=== PATIENT | female | born 1930 | race Caucasian/White ===

== ENCOUNTER 2018-01-19 13:19 | Observation (INO) | payer OTHER ==
[2018-01-19 14:16] LABS: Absolute Lymphocytes (CBC) 1.4 K/uL (0.7-4.9); Absolute Monocytes 0.6 K/uL (0.1-1.3); Absolute Neutrophil 4.2 K/uL (1.8-8.0); Basophils % 0.9 % (0-1.3); Hematocrit 33.5 % (36.0-45.0); Lymphocytes % 22.4 % (15.3-44.8); MCH 32.2 pg (27.0-35.0); MCV 100.2 fL (80-100); Monocytes % 9.5 % (3.3-12.3); RBC Red Blood Cell Count 3.34 M/uL (3.86-4.86)
--- NOTE | 2018-01-19 14:20 | RAD REPORT ---
EXAM DESCRIPTION: CARLOSExtrememe Venous Uni Ltd01/19/2018 2:10 pm CLINICAL HISTORY: Right leg pain and swelling. COMPARISON: None. FINDINGS: Right common femoral, superficial femoral, popliteal and right posterior tibial veins are compressible and demonstrate augmentation. Doppler demonstrates good flow. IMPRESSION: No evidence of deep venous thrombosis involving the right lower extremity.
[2018-01-19 14:38] LABS: Potassium 4.3 mmol/L (3.5-5.1)
--- NOTE | 2018-01-19 14:40 | RAD REPORT ---
EXAM DESCRIPTION: Jerry Single View01/19/2018 2:28 pm CLINICAL HISTORY: Shortness of breath COMPARISON: 2016 FINDINGS: Mild to moderate bilateral pulmonary opacities are present. The heart is mildly enlarged. The right hilum is mildly prominent. Postsurgical changes involve the chest A small left pleural effusion is suspected IMPRESSION: Bilateral pulmonary opacities with cardiomegaly likely indicate CHF Prominence of the right hilum may represent a combination of pulmonary vessels and adjacent interstit ial pulmonary edema. Lymphadenopathy can also have a similar appearance. Followup is recommended
[2018-01-19] MEDS ORDERED: ONDANSETRON 4 MG/2 ML VIAL IV PRN (14:58)
[2018-01-19] MEDS ORDERED: ACETAMINOPHEN 500 MG TAB PO PRN (14:58)
[2018-01-19] MEDS ORDERED: FUROSEMIDE 20 MG/ 2ML VIAL ONE (15:00)
--- NOTE | 2018-01-19 15:01 | ER ---
Nurse's Notes [facility] Name: Emilie Guerrero Age: 87 yrs Sex: Female : 1930 Arrival Date: 01/19/2018 Time: 13: Bed 6 Private MD: Srikanth Mackenzie B Diagnosis: Dyspnea, unspecified;Edema, unspecified Presentation: 01/19 13:24 Presenting complaint: Patient states: sent by Dr Mackenzie to r/o DVT to right leg. Pt sv reports RLE swelling and numbness. Transition of care: patient was not received from another setting of care. Onset of symptoms was November 2017. Risk Assessment: Do you want to hurt yourself or someone else? Patient reports no desire to harm self or others. Care prior to arrival: None. 13:24 Method Of Arrival: Wheelchair sv 13:24 Acuity: SHAILESH 3 sv 13:40 Initial Sepsis Screen: Does the patient meet any 2 criteria? No. Patient's initial hj sepsis screen is negative. Does the patient have a suspected source of infection? No. Patient's initial sepsis screen is negative. Triage Assessment: 13:38 General: Appears in no apparent distress. uncomfortable, Behavior is calm, cooperative, hj appropriate for age. Pain: Complains of pain in right leg. EENT: No signs and/or symptoms were reported regarding the EENT system. Neuro: Level of Consciousness is awake, alert, obeys commands, Oriented to person, place, time, situation, Appropriate for age. Cardiovascular: Denies chest pain, Heart tones S1 S2 present Capillary refill < 3 seconds Patient's skin is warm and dry. Respiratory: Airway is patent Respiratory effort is even, unlabored, Respiratory pattern is regular, symmetrical, Breath sounds are clear. Respiratory: Reports shortness of breath on exertion. GI: No signs and/or symptoms were reported involving the gastrointestinal system. : No signs and/or symptoms were reported regarding the genitourinary system. Derm: No signs and/or symptoms reported regarding the dermatologic system. Musculoskeletal: No signs and/or symptoms reported regarding the musculoskeletal system. Historical: - Allergies: 13:26 No Known Allergies; sv - Home Meds: 13:26 Lipitor 10 mg Oral Tb24 1 tab nightly for Hypercholesterolemia [Active]; Coreg 3.125 mg sv Oral Tb24 0.5 tab daily for Chronic Heart Failure [Active]; magnesium oxide 400 mg Oral Tb24 nightly for Hypomagnesemia [Active]; Klor-Con 10 meq daily [Active]; Lasix Oral 1 tab once daily for Peripheral Edema due to Chronic Heart Failure [Active]; aspirin 81 mg Oral TbEC 2 tabs once daily for Acute Coronary Syndrome [Active]; Vitamin D Oral [Active]; - PMHx: 13:26 CHF; Hyperlipidemia; Hypertension; sv - PSHx: 13:26 BACK-2016; CABG; Aortic Valve-2016; sv - Immunization history:: Adult Immunizations up to date. - Social history:: Smoking status: Patient/guardian denies using tobacco. - Ebola Screening: : No symptoms or risks identified at this time. - Family history:: not pertinent. - Hospitalizations: : No recent hospitalization is reported. Screenin:38 Abuse screen: Denies threats or abuse. Denies injuries from another. Nutritional hj screening: No deficits noted. Tuberculosis screening: No symptoms or risk factors identified. Fall Risk None identified. Assessment: 13:16 Reassessment: see triage for assessment;. hj 14:30 Reassessment: Patient and/or family updated on plan of care and expected duration. Pain hj level reassessed. Patient is alert, oriented x 3, equal unlabored respirations, skin warm/dry/pink. awaiting results and POC;. 15:15 Reassessment: Patient and/or family updated on plan of care and expected duration. Pain hj level reassessed. Patient is alert, oriented x 3, equal unlabored respirations, skin warm/dry/pink. for admit;. 15:44 Reassessment: Patient and/or family updated on plan of care and expected duration. Pain hj level reassessed. Patient is alert, oriented x 3, equal unlabored respirations, skin warm/dry/pink. awaiting room placement;. 16:21 Reassessment: Patient and/or family updated on plan of care and expected duration. Pain hj level reassessed. Patient is alert, oriented x 3, equal unlabored respirations, skin warm/dry/pink. to room 414; awaiting for floor nurse to call back to receive report;. Vital Signs: 13:26 BP 128 / 46; Pulse 69; Resp 18; Pulse Ox 93% on R/A; Weight 79.38 kg; Height 5 ft. 5 sv in. (165.10 cm); 13:31 Temp 98.3; sv 14:30 BP 129 / 58; Pulse 68; Resp 18; Pulse Ox 100% on R/A; hj 15:46 BP 142 / 61; Pulse 58; Resp 18; Pulse Ox 100% on R/A; hj 16:22 BP 141 / 66; Pulse 60; Resp 18; Pulse Ox 99% on R/A; hj 13:26 Body Mass Index 29.12 (79.38 kg, 165.10 cm) sv ED Course: 13:22 Patient arrived in ED. mr 13:22 Srikanth Mackenzie MD is Private Physician. mr 13:25 Triage completed. sv 13:26 Arm band placed on right wrist. sv 13:28 Jay Tomlin, NIECY is Primary Nurse. hj 13:32 Houston Berumen MD is Attending Physician. rn 13:40 Patient has correct armband on for positive identification. Placed in gown. Bed in low hj position. Call light in reach. Side rails up X 1. 13:46 Note: us done bedside/portable. lc3 13:51 Initial lab(s) drawn, by ny, sent to lab. Inserted saline lock: 22 gauge in right hj antecubital area, using aseptic technique. Blood collected. 13:52 Blood Culture Adult (2) Sent. hj 13:52 BMP Sent. hj 13:52 CBC with Diff Sent. hj 13:52 Troponin (emerg Dept Use Only) Sent. hj 13:52 NT PRO-BNP Sent. hj 13:52 CBC with Automated Diff Sent. hj 13:52 Basic Metabolic Panel Sent. hj 13:52 Blood Culture Sent. hj 13:55 EKG done, by director of instructional technology. reviewed by Houston Berumen MD. sm3 14:10 Extremity Venous Uni Ltd US In Process Unspecified. EDMS 14:11 Ultrasound completed. Patient tolerated well. lc3 14:23 X-ray completed. Portable x-ray completed in exam room. Patient tolerated procedure ml well. 14:28 XRAY CXR (1 view) In Process Unspecified. EDMS 15:00 Gerhard Nascimento DO is Hospitalizing Provider. rn 15:15 BNP Sent. hj Administered Medications: 14:49 Drug: Lasix 20 mg Route: IVP; Site: right antecubital; hj 15:15 Follow up: Response: No adverse reaction hj Outcome: 15:00 Decision to Hospitalize by Provider. rn 17:08 Patient left the ED. Signatures: Dispatcher [employer] EDKelly Orr, Harini Turner RN, Houston Emerson MD MD rn Joaquin, Henry, RN RN hj Cunningham, Sarah Mae 3
--- NOTE | 2018-01-19 15:01 | EDPHYS ---
Physician Documentation [facility] Name: Emilie Guerrero Age: 87 yrs Sex: Female : 1930 Arrival Date: 01/19/2018 Time: 13:22 Bed 6 Private MD: Srikanth Mackenzie B ED Physician Houston Berumen HPI: 01/19 14:51 This 87 yrs old Female presents to ER via Wheelchair with complaints of Leg rn Swelling. 14:51 Sent by pcp for elevated d-dimer, patient reports approx 1 month of leg swelling and rn achiness, + sob for 1 month, + dyspnea on exertion, no fever, + non-productive cough. . Onset: The symptoms/episode began/occurred 1 month(s) ago. Severity of symptoms: At their worst the symptoms were mild in the emergency department the symptoms are unchanged. The patient has experienced similar episodes in the past. The patient has been recently seen by a physician:. Historical: - Allergies: 13:26 No Known Allergies; sv - Home Meds: 13:26 Lipitor 10 mg Oral Tb24 1 tab nightly for Hypercholesterolemia [Active]; Coreg 3.125 mg sv Oral Tb24 0.5 tab daily for Chronic Heart Failure [Active]; magnesium oxide 400 mg Oral Tb24 nightly for Hypomagnesemia [Active]; Klor-Con 10 meq daily [Active]; Lasix Oral 1 tab once daily for Peripheral Edema due to Chronic Heart Failure [Active]; aspirin 81 mg Oral TbEC 2 tabs once daily for Acute Coronary Syndrome [Active]; Vitamin D Oral [Active]; - PMHx: 13:26 CHF; Hyperlipidemia; Hypertension; sv - PSHx: 13:26 BACK-2016; CABG; Aortic Valve-2016; sv - Immunization history:: Adult Immunizations up to date. - Social history:: Smoking status: Patient/guardian denies using tobacco. - Ebola Screening: : No symptoms or risks identified at this time. - Family history:: not pertinent. - Hospitalizations: : No recent hospitalization is reported. ROS: 14:55 Constitutional: Negative for fever, chills, and weight loss, Eyes: Negative for injury, rn pain, redness, and discharge, Cardiovascular: + leg swelling Respiratory: + sob, + cough Abdomen/GI: Negative for abdominal pain, nausea, vomiting, diarrhea, and constipation, MS/Extremity: Negative for injury and deformity, Skin: Negative for injury, rash, and discoloration, Neuro: Negative for headache, weakness, numbness, tingling, and seizure. Exam: 14:55 Constitutional: This is a well developed, well nourished patient who is awake, alert, rn and in no acute distress. Head/Face: Normocephalic, atraumatic. Eyes: Pupils equal round and reactive to light, extra-ocular motions intact. Lids and lashes normal. Conjunctiva and sclera are non-icteric and not injected. Cornea within normal limits. Periorbital areas with no swelling, redness, or edema. Neck: Trachea midline, no thyromegaly or masses palpated, and no cervical lymphadenopathy. Supple, full range of motion without nuchal rigidity, or vertebral point tenderness. No Meningismus. Chest/axilla: Normal chest wall appearance and motion. Nontender with no deformity. No lesions are appreciated. Cardiovascular: Regular rate and rhythm with a normal S1 and S2. No gallops, murmurs, or rubs. Normal PMI, no JVD. No pulse deficits. Respiratory: + mild tachypnea, clear bilaterally Abdomen/GI: Soft, non-tender, with normal bowel sounds. No distension or tympany. No guarding or rebound. No evidence of tenderness throughout. MS/ Extremity: Pulses equal, no cyanosis. Neurovascular intact. Full, normal range of motion. 1+ non-pitting edema RLE with 1cm greater circumference Neuro: Awake and alert, GCS 15, oriented to person, place, time, and situation. Cranial nerves II-XII grossly intact. Motor strength 5/5 in all extremities. Sensory grossly intact. Cerebellar exam normal. Normal gait. Vital Signs: 13:26 BP 128 / 46; Pulse 69; Resp 18; Pulse Ox 93% on R/A; Weight 79.38 kg; Height 5 ft. 5 sv in. (165.10 cm); 13:31 Temp 98.3; sv 14:30 BP 129 / 58; Pulse 68; Resp 18; Pulse Ox 100% on R/A; hj 15:46 BP 142 / 61; Pulse 58; Resp 18; Pulse Ox 100% on R/A; hj 16:22 BP 141 / 66; Pulse 60; Resp 18; Pulse Ox 99% on R/A; hj 13:26 Body Mass Index 29.12 (79.38 kg, 165.10 cm) sv MDM: 13:32 Patient medically screened. rn 14:59 Differential Diagnosis CHF, PE, anemia. Data reviewed: vital signs, nurses notes, laboratory specialist test result(s), EKG, radiologic studies, plain films, and as a result, I will admit patient. Counseling: I had a detailed discussion with the patient and/or guardian regarding: the historical points, exam findings, and any diagnostic results supporting the discharge/admit diagnosis, lab results, radiology results, the need for further work-up and treatment in the hospital. Admission orders: after a detailed discussion of the patient's condition and case, the admit orders are written by me. ED course: Pt with renal insufficiency, unable to get CT PE, will get VQ scan in AM, admitted to dr siddiqi, lasix 20mg ordered, symptoms more consistent with CHF/pulmonary edema given length of symptoms. . 01/19 13:39 Order name: Blood Culture Adult (2) rn 01/19 13:39 Order name: BMP rn 01/19 13:39 Order name: CBC with Diff rn 01/19 13:39 Order name: Troponin (emerg Dept Use Only); Complete Time: 14:40 rn 01/19 13:39 Order name: BNP rn 01/19 13:39 Order name: Blood Culture EDNY 01/19 13:39 Order name: XRAY CXR (1 view); Complete Time: 14:42 rn 01/19 13:39 Order name: Extremity Venous Uni Ltd US; Complete Time: 14:30 rn 01/19 13:39 Order name: Basic Metabolic Panel; Complete Time: 14:40 EDNY 01/19 13:39 Order name: CBC with Automated Diff; Complete Time: 14:18 EDNY 01/19 13:39 Order name: NT PRO-BNP; Complete Time: 14:40 EDNY 01/19 14:48 Order name: VQ scan (Nuclear Medicine) rn 01/19 16:46 Order name: Urine Dipstick--Ancillary (enter results) 01/19 16:54 Order name: Urine Dipstick-Ancillary; Complete Time: 17:01 EDNY 01/19 13:39 Order name: EKG; Complete Time: 13:39 rn 01/19 13:39 Order name: Cardiac monitoring; Complete Time: 13:41 rn 01/19 13:39 Order name: EKG - Nurse/Tech; Complete Time: 13:52 rn 01/19 13:39 Order name: IV Saline Lock; Complete Time: 13:51 rn 01/19 13:39 Order name: Labs collected and sent; Complete Time: 13:52 rn 01/19 13:39 Order name: O2 Per Protocol; Complete Time: 13:40 rn 01/19 13:39 Order name: O2 Sat Monitoring; Complete Time: 13:40 rn 01/19 16:32 Order name: US; Complete Time: 17:01 EDMS Administered Medications: 14:49 Drug: Lasix 20 mg Route: IVP; Site: right antecubital; 15:15 Follow up: Response: No adverse reaction Disposition: 01/19/18 15:00 Hospitalization ordered by Gerhard Siddiqi for Observation. Preliminary diagnosis are Dyspnea, unspecified, Edema, unspecified. - Bed requested for Telemetry/MedSurg (observation). - Status is Observation. hj - Condition is Stable. - Problem is an ongoing problem. - Symptoms have improved. UTI on Admission? No Signatures: Dispatcher [employer] EDMS Kelly Montez RN Dia Garcia RN RN dw Nieto, Roman, MD MD rn Roszak, Josh, PA PA [facility] Jay Tomlin RN RN terra Corrections: (The following items were deleted from the chart) 16:09 15:00 Hospitalization Ordered by Gerhard Siddiqi DO for Observation. Preliminary dw diagnosis is Dyspnea, unspecified; Edema, unspecified. Bed requested for Telemetry/MedSurg (observation). Status is Observation. Condition is Stable. Problem is an ongoing problem. Symptoms have improved. UTI on Admission? No. rn 17:08 16:09 01/19/2018 15:00 Hospitalization Ordered by Gerhard Siddiqi DO for Observation. Preliminary diagnosis is Dyspnea, unspecified; Edema, unspecified. Bed requested for Telemetry/MedSurg (observation). Status is Observation. Condition is Stable. Problem is an ongoing problem. Symptoms have improved. UTI on Admission? No. dw
--- NOTE | 2018-01-19 15:38 | P.HP ---
Certification for Inpatient Patient admitted to: Observation With expected LOS: <2 Midnights Patient will require the following post-hospital care: None Practitioner: I am a practitioner with admitting privileges, knowledge of patient current condition, hospital course, and medical plan of care. Services: Services provided to patient in accordance with Admission requirements found in Title 42 Section 412.3 of the Code of Federal Regulations Patient History Date of Service: 01/19/18 Primary Care Provider: Dr. Mackenzie; Oncology-Dr. Montoya Reason for admission: Shortness of breath, right lower extremity edema History of Present Illness: 87-year-old female presented emergency room after she was sent by her PCP to evaluate for shortness of breath and right lower extremity edema. Patient reports that she has been having mild shortness of breath and edema to the lower extremities primarily to the right lower side over the past month. She denies any fever, chills, or cough. She has reported some congestion. She denies any chest pain, nausea, or vomiting. Occasional palpitations noted. The patient recently had lab. D-dimer was elevated as per PCP reported. In the ER patient was evaluated. Vital signs stable. Patient was slightly hypoxic. On lab white count 6.4, hemoglobin 10.8. Sodium 138, potassium 4.1, BUN of 34, creatinine 1.7 with a GFR of 28. Troponin unremarkable. BNP elevated at 726. Venous Doppler of the right lower extremity negative for DVT. Chest x-ray showed pulmonary edema suspicious for CHF. The patient was admitted for further evaluation. When I saw the patient ER, she appeared stable. She denied any appear in any acute respiratory distress. Patient with history of aortic valve replacement with Pig valve, hyperlipidemia, hypertension, CHF, multiple myeloma, chronic renal disease patient. She does not smoke or drink. Patient takes a small amount of Lasix. Allergies No Known Allergies Allergy (Verified 03/04/16 02:34) Home medications list reviewed: Yes Home Medications: Aspirin [Aspirin EC 81 MG] 2 tab PO DAILY 03/04/16 Atorvastatin Calcium [Lipitor*] 10 mg PO DAILY 03/04/16 Carvedilol 0.5 mg PO DAILY 03/04/16 Furosemide [Lasix*] 20 mg PO DAILY 03/04/16 Magnesium Oxide [Mag 0X*] 400 mg PO DAILY 03/04/16 Potassium Chloride [Klor-Con 10] 10 meq PO DAILY 03/04/16 Tramadol HCl 50 mg PO BID PRN 03/04/16 Azithromycin Tab [Zithromax*] 250 mg PO DAILY #5 tab 03/05/16 Cefdinir [Omnicef] 300 mg PO DAILY #5 capsule 03/05/16 - Past Medical/Surgical History Diabetic: No -: HTN -: CHF -: Coronary artery disease, CABG -: Aortic valve replacement, nonmechanical -: Chronic renal disease -: Hyperlipidemia -: Multiple myeloma -: Back surgery -: Non mechanical aortic valve replacement -: CABG x2 vessels -: Right knee replacement Psychosocial/ Personal History: The patient is a . She lives by herself. She is independent. She has children - Family History Family History: Reviewed- Non-Contributory - Social History Smoking Status: Never smoker Alcohol use: No CD- Drugs: No Caffeine use: Yes Place of Residence: Home Review of Systems General: As per HPI Eyes: Unremarkable ENT: Unremarkable Respiratory: Shortness of Breath, As per HPI Cardiovascular: Palpitations, Edema, As per HPI Gastrointestinal: Unremarkable Genitourinary: Unremarkable Musculoskeletal: Unremarkable Integumentary: As per HPI Neurological: Unremarkable Lymphatics: Unremarkable Physical Examination - Physical Exam General: Alert, In no apparent distress, Oriented x3, Cooperative HEENT: Atraumatic, Normocephalic, PERRLA, Mucous membr. moist/pink Neck: Supple, No Thyromegaly Respiratory: Crackles/rales (Mild bilateral) Cardiovascular: Regular rate/rhythm Gastrointestinal: Normal bowel sounds, Soft and benign, Non-distended, No ascites, No tenderness, No masses, No rebound, No guarding Musculoskeletal: No erythema, No tenderness, No warmth Integumentary: Other (History of right knee replacement. Mild edema to the right lower extremities bilateral right greater than left. Varicosities noted bilateral) Neurological: Normal speech, Normal strength at 5/5 x4 extr, Normal tone, Normal affect Lymphatics: No axilla or inguinal lymphadenopathy - Studies Laboratory Data (last 24 hrs) 01/19/18 13:50: WBC 6.4, Hgb 10.8 L, Hct 33.5 L, Plt Count 216 01/19/18 13:50: Sodium 139, Potassium 4.3, BUN 34 H, Creatinine 1.70 H, Glucose 117 H Assessment and Plan - Problems (Diagnosis) (1) Shortness of breath Current Visit: Yes Status: Acute Plan: Likely from underlying CHF suspect systolic dysfunction. Will increase Lasix to 20 mg IV twice daily. Patient normally takes Lasix 20 mg daily. Will teach on 1500 cc per day fluid restriction and low-salt diet. Since the patient had a recent elevated D-dimer scan for pulmonary embolism. Venous Doppler of the lower extremity is negative. Will console pulmonology to further evaluate and make recommendations. Patient seen by cardiology as an outpatient. Will order echocardiogram. (2) CHF (congestive heart failure) Current Visit: Yes Status: Acute Plan: Suspect systolic dysfunction. Continue with IV Lasix. Teach on fluid restriction. Echocardiogram pending. Qualifiers: Heart failure type: systolic Heart failure chronicity: acute on chronic Qualified Code(s): I50.23 - Acute on chronic systolic (congestive) heart failure (3) Hypertension Current Visit: Yes Status: Chronic Plan: Restart home medication. Will monitor and adjust appropriately. Qualifiers: Hypertension type: essential hypertension Qualified Code(s): I10 - Essential (primary) hypertension (4) CAD (coronary artery disease) Current Visit: Yes Status: Chronic Plan: Continue with aspirin. DVT prophylaxis started. (5) Hyperlipidemia Current Visit: Yes Status: Chronic Plan: Continue with her medication. (6) History of aortic valve replacement Current Visit: Yes Status: Chronic Plan: Patient with non mechanical valve. (7) Multiple myeloma Current Visit: Yes Status: Chronic Plan: Patient with history of multiple myeloma. Patient seen by oncology. Qualifiers: Multiple myeloma remission status: unspecified Qualified Code(s): C90.00 - Multiple myeloma not having achieved remission (8) Chronic renal disease Current Visit: Yes Status: Acute Plan: Acute on chronic renal disease noted. Patient is not been evaluated by nephrology. Will consult Nephrology evaluation. Will check renal ultrasound to further assess. Qualifiers: Chronic kidney disease stage: stage 3 (moderate) Qualified Code(s): N18.3 - Chronic kidney disease, stage 3 (moderate) (9) Hypoxia Current Visit: Yes Status: Acute Plan: Likely from CHF. Continue as above. Wean off oxygen. (10) Edema Current Visit: Yes Status: Acute Plan: Likely from CHF. Continue with IV Lasix.. Teach on fluid restriction. Patient may also have underlying venous insufficiency. Patient with history of right knee replacement. Qualifiers: Edema type: unspecified Qualified Code(s): R60.9 - Edema, unspecified (11) Venous insufficiency Current Visit: Yes Status: Chronic Plan: Likely chronic venous insufficiency of the lower extremities. Patient with multiple varicosities. Continue as above. Discharge Plan: Home Plan to discharge in: 24 Hours - Advance Directives Does patient have a Living Will: Yes Does patient have a Durable POA for Healthcare: No - Code Status/Comfort Care Code Status Assessed: Yes Time Spent Managing Pts Care (In Minutes): 55
--- NOTE | 2018-01-19 16:32 | RAD REPORT ---
EXAM DESCRIPTION: US - Renal Ultrasound-Complete - 01/19/2018 4:03 pm CLINICAL HISTORY: Acute on chronic renal disease Flank pain. COMPARISON: CT ABD PELVIS W CONTRAST dated 05/12/2010 FINDINGS: Both kidneys are normal in size, shape and echotexture. The right kidney measures 9.5 x 5.6 x 4.4 cm.. Mild pelviectasis noted. The left kidney measures 9.6 x 4.5 x 4.4 cm. Mild pelviectasis noted. The urinary bladder is incompletely distended without gross abnormality seen. IMPRESSION: Mild bilateral renal pelviectasis.
[2018-01-19 16:54] LABS: Urine Blood NEGATIVE (NEG); Urine Glucose NEGATIVE (NEG); Urine Protein NEGATIVE (NEG); Urine pH 5.5 (5.0-7.0)
[2018-01-19] MEDS ORDERED: ENOXAPARIN 30 MG/0.3 ML SQ SCH (17:00)
--- NOTE | 2018-01-19 17:31 | EKG ---
Test Date: 2018-01-19 Test Time: 13:48:25 Loan Operations Manager: TRUPTI MEASUREMENT RESULTS: Intervals: Rate: 65 WV: 134 QRSD: 90 QT: 410 QTc: 426 [place]: P: 23 WV: 134 QRS: -4 T: 18 INTERPRETIVE STATEMENTS: Normal sinus rhythm Normal ECG Compared to ECG 03/03/2016 20:06:36 Sinus bradycardia no longer present T-wave abnormality no longer present Electronically Signed On 01-19-18 17:30:14 CDT by Gino Narvaez
--- NOTE | 2018-01-19 17:57 | ECHO ---
HEIGHT: 5 ft 5 in WEIGHT: 174 lb 0 oz DATE OF STUDY: 01/19/[address]: Gerhard Nascimento DO 2-DIMENSIONAL: YES M.MODE: YES DOPPLER: YES COLOR FLOW: YES TDS: YES PORTABLE: NO DEFINITY: NO BUBBLE STUDY: NO DIAGNOSIS: SHORTNESS OF BREATH, SUSPECT CONGESTIVE HEART FAILURE. CARDIAC HISTORY: CATHERIZATION: NO SURGERY: NO PROSTHETIC VALVE: YES PACEMAKER: NO MEASUREMENTS (cm) DIASTOLIC (NORMALS) SYSTOLIC (NORMALS) IVSd 1.0 (0.6-1.2) LA Diam 4.1 (1.9-4.0) LVEF 56% LVIDd 4.3 (3.5-5.7) LVIDs 3.0 (2.0-3.5) %FS 29% LVPWd 1.2 (0.6-1.2) Ao Diam 2.7 (2.0-3.7) 2 DIMENSIONAL ASSESSMENT: RIGHT ATRIUM: NORMAL LEFT ATRIUM: DILATED RIGHT VENTRICLE: NORMAL LEFT VENTRICLE: NORMAL TRICUSPID VALVE: NORMAL MITRAL VALVE: MITRAL ANNULAR CALCIFICATION PULMONIC VALVE: NORMAL AORTIC VALVE: NORMAL PERICARDIAL EFFUSION: NONE AORTIC ROOT: NORMAL LEFT VENTRICULAR WALL MOTION: NORMAL DOPPLER/COLOR FLOW: NORMAL COMMENTS: NORMAL LEFT VENTRICULAR SIZE AND FUNCTION. MILD LEFT ATRIAL ENLARGEMENT. MITRAL ANNULAR CALCIFICATION. NO WALL MOTION ABNORMALITY. NO EFFUSION TECHNOLOGIST: LASHAUN VASQUEZ
[2018-01-19] MEDS: CARVEDILOL 3.125 MG TAB PO SCH (18:42)
[2018-01-19] MEDS: FUROSEMIDE 20 MG/ 2ML VIAL IV SCH (18:44)
[2018-01-19] MEDS ORDERED: ATORVASTATIN 20 MG TAB PO SCH (21:00)
[2018-01-19 23:36] LABS: CKMB Creatine Kinase MB 1.1 ng/mL (0.3-3.6)
[2018-01-20 05:15] LABS: Absolute Lymphocytes (CBC) 1.4 K/uL (0.7-4.9); Absolute Monocytes 0.7 K/uL (0.1-1.3); Absolute Neutrophil 3.7 K/uL (1.8-8.0); Basophils % 0.7 % (0-1.3); Eosinophils % 2.2 % (0-4.4); Hematocrit 34.4 % (36.0-45.0); Lymphocytes % 23.4 % (15.3-44.8); MCH 32.1 pg (27.0-35.0); MCV 99.6 fL (80-100); MPV 9.3 fL (7.6-11.3); Monocytes % 11.5 % (3.3-12.3); RBC Red Blood Cell Count 3.45 M/uL (3.86-4.86)
[2018-01-20 05:20] LABS: Magnesium 2.5 mg/dL (1.8-2.4)
[2018-01-20 05:25] LABS: Thyroid Stimulating Hormone 5.46 uIU/mL (0.36-3.74)
[2018-01-20] MEDS: CARVEDILOL 3.125 MG TAB PO SCH (06:00)
[2018-01-20 07:51] LABS: CKMB Creatine Kinase MB 1.1 ng/mL (0.3-3.6)
[2018-01-20] MEDS: FUROSEMIDE 20 MG/ 2ML VIAL IV SCH (08:46)
[2018-01-20] MEDS ORDERED: ENOXAPARIN 40 MG/0.4 ML SQ SCH (09:00)
[2018-01-20] MEDS ORDERED: ASPIRIN EC 81 MG TAB PO SCH (09:00)
--- NOTE | 2018-01-20 10:19 | P.CNS ---
Date of Consult: 01/20/18 Reason for Consult: Shortness of breath Primary Care Provider: Dr. Mackenzie; Oncology-Dr. Montoya Chief Complaint: Shortness of breath, right lower extremity edema History of Present Illness: Patient is a pleasant 87-year-old lady was been complaining of shortness of breath and swelling of the right foot for the past couple months she currently went to see a primary care doctor for swelling her D-dimer was elevated patient admitted to the hospital patient is feeling better was given some Lasix she has chronic renal insufficiency denies any fever chills cough sputum patient has never smoked chest x-ray possible a volume overload Allergies No Known Allergies Allergy (Verified 01/19/18 16:12) Home Medications: Aspirin [Aspirin EC 81 MG] 2 tab PO DAILY 03/04/16 Atorvastatin Calcium [Lipitor*] 10 mg PO DAILY 03/04/16 Furosemide [Lasix*] 20 mg PO DAILY 03/04/16 Magnesium Oxide [Mag 0X*] 400 mg PO DAILY 03/04/16 Potassium Chloride [Klor-Con 10] 10 meq PO DAILY 03/04/16 Carvedilol 0.5 tab PO DAILY 01/19/18 Cholecalciferol (Vitamin D3) [Vitamin D 1000 Iu Tab] 1,000 unit PO DAILY - Past Medical/Surgical History Diabetic: No -: HTN -: CHF -: Coronary artery disease, CABG x2 bipass -: Aortic valve replacement, nonmechanical -: Chronic renal disease -: Hyperlipidemia -: Multiple myeloma "cancer of the blood" diag 3 yrs ago. no treatment done -: Back surgery -: Non mechanical aortic valve replacement -: CABG x2 vessels -: Right knee replacement Psychosocial/ Personal History: The patient is a . She lives by herself. She is independent. She has children - Family History Sister Medical History: Cancer - Social History Smoking Status: Never smoker Alcohol use: No CD- Drugs: No Caffeine use: Yes Place of Residence: Home Review of Systems 10-point ROS is otherwise unremarkable Physical Examination Temp Pulse Resp BP Pulse Ox 97.3 F 52 16 105/53 L 94 01/20/18 08:00 01/20/18 08:46 01/20/18 08:00 01/20/18 08:46 01/20/18 08:00 General: Alert, Oriented x3 HEENT: Atraumatic Neck: Supple Respiratory: Crackles/rales (Minimal crackles at the bases) Cardiovascular: No edema, Regular rate/rhythm, Normal S1 S2 Gastrointestinal: Normal bowel sounds, Soft and benign Laboratory Data (last 24 hrs) 01/19/18 13:50: WBC 6.4, Hgb 10.8 L, Hct 33.5 L, Plt Count 216 01/19/18 13:50: Sodium 139, Potassium 4.3, BUN 34 H, Creatinine 1.70 H, Glucose 117 H - Problems (1) CHF (congestive heart failure) Current Visit: Yes Status: Acute Plan: Patient is 87 years of age admitted with shortness of breath on the right ankle edema for the past couple of months she has chronic adrenal insufficiency doubt thromboembolism V/Q scan report is pending no obvious perfusion defects BNP elevated all consistent with volume overload patient is feeling much better patient can be discharged home on Lasix 40 mg p.o. daily fluid and salt restrictions to follow up with Nephrology daily room air pulse ox patient's tsh is mildly elevated free T4 is normal I have ordered a serum free T3 level Qualifiers: Heart failure type: systolic Heart failure chronicity: acute on chronic Qualified Code(s): I50.23 - Acute on chronic systolic (congestive) heart failure
--- NOTE | 2018-01-20 11:08 | RAD REPORT ---
EXAM DESCRIPTION: RAD - Chest Pa And Lat (2 Views) - 01/20/2018 6:20 am CLINICAL HISTORY: follow up CHF Chest pain. COMPARISON: Chest Single View dated 01/19/2018; Chest Pa And Lat (2 Views) dated 03/14/2016; Chest Sin gle View dated 03/05/2016; Chest Single View dated 03/03/2016 FINDINGS: Airspace opacity in the left lung base associated with a small left pleural effusion is no miguel, likely representing aspiration/ pneumonia. Previously CHF pattern appears fractionally improved. The heart is mildly enlarged. Sternotomy wires are present. No displaced fractures. IMPRESSION: Left lower lobe pneumonia suspected. Fractional improvement in CHF pattern.
--- NOTE | 2018-01-20 11:24 | RAD REPORT ---
EXAM DESCRIPTION: NM - Vent Perfusion VQ Scan - 01/20/2018 6:21 am CLINICAL HISTORY: Chest pain, shortness of breath COMPARISON: Recent chest radiograph. TECHNIQUE: The patient was administered approximately 20 mCi Xenon 133 gas with posterior projection inspiration, equilibrium, and washout views obtained. The patient was then administered approximatel y 7 mCi Tc-99m SC labeled RBCs followed by standard 8 view protocol. FINDINGS: Ventilation is slightly heterogenous and asymmetric with reduced left basilar ventilation noted. This correlates with infiltrate seen on recent chest radiograph. Mild air trapping is noted. Heterogenous profusion is seen with reduced perfusion to the left base. A few small subsegmental mism atched defects are seen in the left lung. IMPRESSION: Low to intermediate probability of pulmonary embolism.
[2018-01-20 12:25] VITALS: O2SAT 95
--- NOTE | 2018-01-20 13:37 | P.CNS ---
Date of Consult: 01/20/18 seen/examined for sourav. looks well currently. swelling in legs improved. lungs still with few crackles but improved breathing. using 2 l nc with o2 sats in mid -90s. vs stable. allergies: nkda family hx: non-contributory. social hx: lives alone. family/kids close by. feels safe at home. follows with Dr. Noonan for "heart issues" denies pain/vs stable lungs few basal crackles abd soft/nt/bs + ext trace edema. increased swelling in right leg is resolving. labs reviewed. a/p: chf/sourav/resp distress: much improved. on lasix. salt restriction counseled. advised to f/u with [facility] once stable/discharged. advised to f /u with nephrology (can see Dr. Waters in [place]) once acute issues resolved to evaluate for residual renal status. clinically improved. fall and back precautions counseled. may need oxygen upon discharge...patient counseled. perhaps, condition will improve to baseline with lasix and oxygen may not be needed...primary team to consider on discharge. plan discussed with patient and with primary rn and charge entry clerk.
[2018-01-20 16:51] VITALS: BP 139/61; TEMP 97.6
--- NOTE | 2018-01-20 17:21 | DS ---
Discharge Diagnoses: 1.Dyspnea secondary to volume overload. 2.Acute on chronic renal insufficiency. 3.Lower extremity edema, improved. 4.Hypertension. 5.History of coronary artery disease. 6.Hyperlipidemia. 7.History of multiple myeloma. 8.History of aortic valve replacement with nonmechanical valve. Consults: 1.Dr. Perry from Pulmonary. 2.Dr. Fitch from Nephrology. Procedure: 1.Chest x-ray done on the day of admission showed bilateral pulmonary opacities, cardiomegaly consis tent with CHF. 2.Some hilar adenopathy with a followup x-ray recommended. 3.Echocardiogram done yesterday showed a normal left ventricular size and function, mild left atrial enlargement, mitral annular calcification, no wall motion abnormalities, no effusion. 4.Renal ultrasound was normal except for mild bilateral renal pelvic disease. 5.Lung scan V/Q scan showed low to intermediate probability of pulmonary embolism with heterogeneous profusion seen with reduced perfusion in the left base. Diffuse small subsegmental mismatched defec ts are seen in the left lung. History Of Present Illness: Please refer to Dr. Nascimento admission. Hospital Course: Initially, the patient presented with progressive shortness of breath, lower extrem ity edema on the right leg. X-ray showed volume overload. The patient was started on IV Lasix. She was found also to have renal insufficiency. Echocardiogram done showed normal systolic function. N o pulmonary hypertension. Lower extremity Doppler done to rule out DVT. It was negative. Dr. Reyna parekh consulted and he thought the patient shortness of breath most likely is secondary to CHF and volu me overload. The patient need a high dose of Lasix. We increase Lasix to 40 mg upon discharge. V/Q scan done showed a [id number] probability of PE, so Dr. Perry did not believe so as the pat bigg does not have pulmonary hypertension and her shortness of breath being chronic rather than acute . So he did not recommend anticoagulation when I discussed the results with him on the phone for the V/Q scan. The patient will be discharged to home on home oxygen with increased dose of Lasix up to 40. Nephrology have seen the patient and they advised fluid restriction with salt restriction. She will need to follow up with Dr. Waters in 1-2 weeks in the outpatient clinic in [place]. Discharge Condition: Stable. Discharged Diet: Cardiac/renal. Discharge Activity: As tolerated. Avoid exertion. Discharge Physical Exam: Vital Signs: Blood pressure 109/48, respiratory rate 16, pulse 54, tempera ture 97.7. General: She is fully alert and oriented x3. She does not look in any distress. HEENT: Atraumatic, normocephalic. PERRLA. The oral mucosa is moist. Neck: Supple. No JVD. No bruits. Chest: Basilar crackles bilaterally. No expiratory wheezing. Heart: Regular rate and rhythm. S1, S2 normal. No gallop. Abdomen: Soft, nontender. No masses. No hepatosplenomegaly. Positive bowel sounds. Extremities: No clubbing or cyanosis. No edema today. NEUROLOGIC: Grossly intact. Discharge Followup: Follow up with the primary physician on Monday with labs. Follow up with Nephro logy in 1-2 weeks. Primary care physician need to arrange for x-ray as outpatient to make sure the h ilar adenopathy resolving. Discharge Medication: Lasix 40 mg orally once a day, aspirin 81 mg once a day, Lipitor 10 mg once a day, Coreg 3.125 mg daily. Vitamin D as before. Mag-Ox 400 mg daily, potassium 10 mEq daily. Again the patient needs followup with primary care physician this week with labs, follow up with Neph rology in 2 weeks. She will also need to have outpatient followup for the lymphadenopathy noted on the x-ray in the right hilum. ARON/TISHA Voice ID: [id number] Report ID: [id number]
== END 2018-01-20 16:17 | disposition home or self-care (01) ==
LOC: ER 13:19 → ERHOLD 15:01 → 4TH 16:57
PROVIDERS: ADMIT Family Medicine; ATTEND Family Medicine
DX: I13.0 Hypertensive heart and chronic kidney disease with heart failure and stage 1 through stage 4 chronic kidney disease, or unspecified chronic kidney disease (principal); N18.3 Chronic kidney disease, stage 3 (moderate); I50.23 Acute on chronic systolic (congestive) heart failure; N17.9 Acute kidney failure, unspecified; E78.5 Hyperlipidemia, unspecified; Z95.2 Presence of prosthetic heart valve; I25.10 Atherosclerotic heart disease of native coronary artery without angina pectoris; Z95.1 Presence of aortocoronary bypass graft; C90.00 Multiple myeloma not having achieved remission
CPT/HCPCS: 36415; 71045; 71046; 76770; 78582; 80048 ×2; 80061; 81003; 82550 ×2; 82553 ×2; 83735; 83880; 84439; 84443; 84481; 84484 ×3; 85025 ×2; 87040 ×2; 93005; 93306; 93971; 96374; 99284; A9540; A9558; G0378 ×2; J1940 ×3; 80053; 82306; 82607; 85379

== ENCOUNTER 2018-06-22 15:04 | Inpatient (IN) | payer OTHER ==
[2018-06-22 15:45] LABS: Arterial Blood Carboxyhemoglob 1.1 % (0-1.5); Blood Gas Oxyhemoglobin 86.6 % (94-97); Blood O2 Saturation 88.5 % (92-98.5)
--- NOTE | 2018-06-22 16:09 | RAD REPORT ---
EXAM DESCRIPTION: CT - Head Brain Wo Cont - 06/22/2018 3:57 pm CLINICAL HISTORY: Transient alteration of awareness COMPARISON: CT study February 2016 TECHNIQUE: Axial 5 mm thick images of the head were obtained without IV contrast. All CT scans are performed using dose optimization technique as appropriate and may include automated exposure control or mA/KV adjustment according to patient size. FINDINGS: No intracranial hemorrhage, mass, edema or shift of mid-line structures. No acute infarcti on changes seen. Moderate atrophy and advanced chronic ischemic changes are present. Chronic ischemic changes are focally more prominent in the lateral left basal ganglia and extending into the left fro ntal lobe white matter. This is a stable pattern. Ventricles are in proportion to the amount of volum e loss. Arterial and physiologic calcifications are present. Mastoid air cells and visualized portions of the paranasal sinuses are clear. No acute bony findings. IMPRESSION: No hemorrhage, mass or other acute intracranial finding. Prominent atrophy and chronic ischemic changes not substantially different from 2016.
[2018-06-22 16:10] LABS: Absolute Lymphocytes (CBC) 0.4 K/uL (0.7-4.9); Absolute Monocytes 0.9 K/uL (0.1-1.3); Absolute Neutrophil 17.3 K/uL (1.8-8.0); Basophils % 0.2 % (0-1.3); Hematocrit 30.9 % (36.0-45.0); Lymphocytes % 1.9 % (15.3-44.8); MCH 33.9 pg (27.0-35.0); MCV 101.4 fL (80-100); MPV 8.9 fL (7.6-11.3); RBC Red Blood Cell Count 3.05 M/uL (3.86-4.86)
[2018-06-22 16:13] LABS: Protime INR 1.4
[2018-06-22 16:35] LABS: Blood Morphology Comment NOTED (NOT SEEN); Platelet Estimate ADEQ; Platelets, Giant NOTED; Stomatocytes 1+
[2018-06-22 16:42] LABS: Albumin 2.9 g/dL (3.4-5.0); Bilirubin Direct 0.2 mg/dL (0-0.2); Bilirubin Total 0.4 mg/dL (0.2-1.0); CKMB Creatine Kinase MB 2.5 ng/mL (0.3-3.6); Potassium 3.8 mmol/L (3.5-5.1); Protein, Total 9.3 g/dL (6.4-8.2); Troponin (Emerg Dept Use Only) 1.64 ng/mL (0.0-0.045)
[2018-06-22 16:50] LABS: Urine Blood 2+ (NEG); Urine Glucose NEGATIVE (NEG); Urine Protein 2+ (NEG); Urine Specific Gravity 1.025 (1.005-1.030); Urine pH 5.5 (5.0-7.0)
--- NOTE | 2018-06-22 17:25 | ER ---
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 Last seen aj normal yesterday at 1730 after Thanksgiving. Patient was found with home O2 turned off with dried emesis on clothing. Alert to person. Patient shivering on arrival. Transition of care: patient was not received from another setting of care. Onset of symptoms was June 21, 2018 at 17:30. Risk Assessment: Do you want to hurt yourself or someone else? Patient reports no desire to harm self or others. Initial Sepsis Screen: Does the patient meet any 2 criteria? Altered Mental Status. HR > 90 bpm. Yes Does the patient have a suspected source of infection? No. Patient's initial sepsis screen is negative. 15:10 Method Of Arrival: EMS: [facility] 15:10 Acuity: SHAILESH 2 15:17 Care prior to arrival: IV initiated. 20 GA, in the left in the right antecubital area, aj hand, Glucose check: 152 Oxygen administered. via nasal cannula. Triage Assessment: 15:14 General: Appears in no apparent distress. uncomfortable, Behavior is calm, cooperative. aj Pain: Denies pain. Neuro: Level of Consciousness is awake, alert, obeys commands, Oriented to person. Respiratory: Reports shortness of breath at rest Airway is patent Trachea midline Respiratory effort is even, labored, Respiratory pattern is tachypnea Onset: The symptoms/episode began/occurred yesterday, the patient has mild shortness of breath. GI: emesis noted on shirt. Derm: Skin is fragile, is thin, Skin is dry, Skin is normal, Skin temperature is hot. Historical: - Allergies: 15:14 No Known Allergies; aj - Home Meds: 15:14 aspirin 81 mg Oral TbEC 2 tabs once daily for Acute Coronary Syndrome [Active]; Coreg aj 3.125 mg Oral Tb24 0.5 tab daily for Chronic Heart Failure [Active]; Klor-Con 10 meq daily [Active]; Lasix Oral 1 tab once daily for Peripheral Edema due to Chronic Heart Failure [Active]; Lipitor 10 mg Oral Tb24 1 tab nightly for Hypercholesterolemia [Active]; Vitamin D Oral [Active]; magnesium oxide 400 mg Oral Tb24 nightly for Hypomagnesemia [Active]; - PMHx: 15:14 CHF; Hyperlipidemia; Hypertension; aj - PSHx: 15:14 BACK-2016; CABG; Aortic Valve-2016; aj - Immunization history:: Adult Immunizations up to date. - Social history:: Smoking status: Patient/guardian denies using tobacco. - Ebola Screening: : Patient negative for fever greater than or equal to 101.5 degrees Fahrenheit, and additional compatible Ebola Virus Disease symptoms Patient denies exposure to infectious person Patient denies travel to an Ebola-affected area in the 21 days before illness onset No symptoms or risks identified at this time. Screenin:34 Abuse screen: Denies threats or abuse. Denies injuries from another. Nutritional aj screening: No deficits noted. Tuberculosis screening: No symptoms or risk factors identified. Fall Risk None identified. Assessment: 15:34 Reassessment: No changes from previously documented assessment. See triage. aj 18:26 Reassessment: Patient appears in no apparent distress at this time. No changes from aj previously documented assessment. Patient and/or family updated on plan of care and expected duration. Pain level reassessed. Patient is alert, oriented x 3, equal unlabored respirations, skin warm/dry/pink. Patient denies pain at this time. Patient states feeling better. Patient states symptoms have improved. 19:00 General: Appears distressed, Behavior is listless. Neuro: Level of Consciousness is bb listless, Oriented to person. Cardiovascular: Rhythm is Respiratory: Respiratory effort is labored, Respiratory pattern is tachypnea Breath sounds with crackles in left posterior lower lobe. GI: Abdomen is obese, Abd is soft and non tender X 4 quads. Derm: Skin is dry, Skin is pale, Skin temperature is warm. 19:10 Reassessment: pt O2 sats 83% placed on NRB at 15 Lpm Jason Laguerre ICT BUSINESS DEVELOPMENT MANAGER notified RT bb notified for placement of Bipap. 19:15 Reassessment: RT at bedside for placement of bipap pt not tolerating well notified P jessee Laguerre ICT BUSINESS DEVELOPMENT MANAGER new orders received pt medicated see SEP. 19:35 Reassessment: notified Jose Francisco Laguerre ICT BUSINESS DEVELOPMENT MANAGER pt respiratory rate continues to be tachypneic in bb the 30s pt O2 sats dropping into low 80s Jose Francisco Laguerre NP and Dr Berumen at bedside for discussion of plan of care if pt continues to remain tachypneic or symptoms worsen will need to consider intubation. Pt's daughters verbalized understanding of and agree to plan of care. 20:30 Reassessment: pt appears more comfortable respiratory rate is tachypneic, labored, bb bilateral breath sounds clear, IV site intact, patent with fluids infusing, herrera catheter in place to bedside drain. Family at bedsidel. 21:30 Reassessment: pt appears more comfortable resp less labored, less tachypnea, lisy breath bb sounds clear, pt temp 103 rectal and systolic BP 97 Jose Francisco Laguerre ICT BUSINESS DEVELOPMENT MANAGER notified, new orders received pt medicated see SEP. Pt awaiting room assignment. 22:15 Reassessment: notified Jose Francisco Laguerre ICT BUSINESS DEVELOPMENT MANAGER pt's BP 85/50 new orders received pt medicated see bb SEP. 22:32 Reassessment: Dr Jane at bedside for pt evaluation. bb 23:23 Reassessment: pt resting quietly resp less labored, Bipap in place, IV sites intact, bb patent, with fluids infusing, herrera catheter in place to bedside drain pt awaiting transfer to ICU room 7. RT called for transfer. Vital Signs: 15:14 BP 106 / 54; Pulse 94; Resp 28; Temp 102.3(O); Pulse Ox 97% on 4 lpm NC; Weight 81.65 aj kg; Height 5 ft. 2 in. (157.48 cm); 17:30 BP 110 / 45; Pulse 81; Resp 23; Pulse Ox 92% on 2 lpm NC; aj 18:28 BP 116 / 57; Pulse 83; Resp 22; Temp 100.2(O); Pulse Ox 93% on 2 lpm NC; aj 19:00 Resp 33; Pulse Ox 83% on 4 lpm NC; bb 20:03 BP 104 / 64; Pulse 84; Resp 27 A; Pulse Ox 100% on 60% BiPAP; bb 20:48 BP 104 / 50; Pulse 79; Resp 28 A; Pulse Ox 100% on 60% BiPAP; bb 21:34 BP 97 / 56; Pulse 77; Resp 25 A; Temp 103(A); Pulse Ox 99% on 60% BiPAP; bb 22:14 BP 85 / 50; Pulse 73; Resp 26; Pulse Ox 100% on 60% BiPAP; bb 22:32 BP 106 / 69; Pulse 96; Resp 26; Temp 101.7; Pulse Ox 99% on 60% BiPAP; bb 22:45 BP 103 / 55; Pulse 88; Resp 22 S; Pulse Ox 99% on 60% BiPAP; bb 23:00 BP 100 / 52; Pulse 87; Resp 21; Pulse Ox 100% on 60% BiPAP; bb 23:20 BP 96 / 59; Pulse 98; Resp 21; Pulse Ox 100% on 60% BiPAP; bb 15:14 Body Mass Index 32.92 (81.65 kg, 157.48 cm) aj ED Course: 15:10 Patient arrived in ED. aj 15:11 Jason Laguerre NP is PHCP. pm1 15:11 Shaji Hutchison MD is Attending Physician. pm1 15:12 Triage completed. aj 15:14 Arm band placed on right wrist. Patient placed in an exam room, on a stretcher, on aj oxygen, on stunt performer, on pulse oximetry. 15:22 Rubin Suazo, NIECY is Primary Nurse. bp 15:[address] vr 15:34 Patient has correct armband on for positive identification. Side rails up X2. Cardiac aj monitor on. Pulse ox on. NIBP on. 15:34 Herrera cath inserted, using sterile technique, 18 Fr., by ms, balloon inflated, to aj gravity drainage, urine specimen collected. Maintain EMS IV. Site clean \T\ dry. Gauge \T\ site: 20 to right AC and 20 to left hand. Flushed right left. 15:40 X-ray completed. Radiology exam delayed due to IV insertion attempt and/or patient not ls3 having appropriate IV at this time. 15:57 CT Head Brain wo Cont In Process Unspecified. EDMS 16:13 X-ray completed. Portable x-ray completed in exam room. Patient tolerated procedure ls3 well. Patient moved back from radiology. 16:15 Chest Single View XRAY In Process Unspecified. EDMS 16:55 EKG done, by ED staff, reviewed by Jason Laguerre NP. jb1 17:04 EKG done, by ED staff, reviewed by Jason Laguerre NP. jb1 17:22 Isabel Fontanez MD is Hospitalizing Provider. pm1 18:05 CT Abd/Pelvis - Without Cont In Process Unspecified. EDMS 20:46 No provider procedures requiring assistance completed. Patient admitted, IV remains in bb place. Administered Medications: 09:33 Drug: Lasix 40 mg Route: IVP; Site: left wrist; bb 22:14 Follow up: Response: No adverse reaction bb 15:33 Drug: NS 0.9% 500 ml Route: IV; Rate: bolus; Site: right antecubital; aj 18:36 Follow up: Response: No adverse reaction; IV Status: Completed infusion; IV Intake: aj 500ml 15:34 Drug: Zofran 4 mg Route: IVP; Site: right antecubital; aj 18:35 Follow up: Response: No adverse reaction aj 15:34 Drug: Tylenol Suppository 650 mg Route: GA; aj 18:35 Follow up: Response: Temperature is decreased aj 18:34 Drug: NS 0.9% 500 ml Route: IV; Rate: bolus; Site: right forearm; aj 19:26 Follow up: IV Status: Completed infusion; IV Intake: 500ml bb 18:34 Drug: Aspirin 325 mg Route: PO; aj 22:14 Follow up: Response: No adverse reaction bb 18:35 Drug: Cefepime 2 grams Route: IVPB; Rate: 200 ml/hr; Infused Over: 30 mins; Site: right aj forearm; 19:15 Follow up: IV Status: Completed infusion; IV Intake: 200ml bb 19:26 Drug: Ativan 0.5 mg Route: IVP; Site: left wrist; bb 22:14 Follow up: Response: No adverse reaction bb 19:45 Drug: vancoMYCIN 1 grams Route: IVPB; Infused Over: 2 hrs; Site: right forearm; bb 22:45 Follow up: IV Status: Completed infusion; IV Intake: 250ml lp1 21:34 Drug: Tylenol Suppository 650 mg Route: GA; bb 23:08 Follow up: Response: Temperature is decreased lp1 22:13 Drug: Dopamine drip 2 mcg/kg/min - (DOPamine 400 mg, D5W 250 ml) Route: IV; Rate: bb calculated rate; Site: right forearm; 23:07 Follow up: IV Status: Infusion continued upon admission lp1 23:09 CANCELLED (Physician Discretion): NS 0.9% 500 ml IV at 100 ml/hr once lp1 Intake: 18:36 IV: 500ml; Total: 500ml. aj 19:15 IV: 200ml; Total: 700ml. bb 19:26 IV: 500ml; Total: 1200ml. bb 22:45 IV: 250ml; Total: 1450ml. lp1 Output: 23:17 Urine: 600ml (Herrera); Total: 600ml. lp1 Outcome: 17:24 Decision to Hospitalize by Provider. pm1 20:46 Condition: stable bb 20:46 Instructed on the need for admit. 23:09 Admitted to ICU accompanied by nurse, via stretcher, room 7, with oxygen, on monitor, lp1 with chart, Other bedside report given to Sheila PEMBERTON 23:48 Patient left the ED. jessee Signatures: Dispatcher [employer] EDMS Parvez Luna jb1 Merary Child, RN RN Stephanie Mahoney, RN RN Cynthia Dale Laura, RN RN lp1 Jason Laguerre NP ICT BUSINESS DEVELOPMENT MANAGER pm1 Rubin Suazo RN RN Lacey Sanchez ls3 Corrections: (The following items were deleted from the chart) 15:17 15:10 Care prior to arrival: None. aj aj 15:19 15:14 BP 106 / 54; Pulse 94bpm; Resp 28bpm; Pulse Ox 97% 4 lpm Nasal Cannula; 81.65 kg; aj Height 5 ft. 2 in.; BMI: 32.9; aj 18:30 18:28 BP 116 / 57; Pulse 83bpm; Resp 22bpm; Pulse Ox 93% 2 lpm Nasal Cannula; aj aj 21:39 21:37 Reassessment: jessee hooks 22:03 21:34 BP 97 / 56; Pulse 77bpm; Resp 25bpm; Assisted; Pulse Ox 99% 02 60% BiPAP; Temp bb 103F Rectal; bb
--- NOTE | 2018-06-22 17:25 | EDPHYS ---
Physician Documentation [facility] Name: Emilie Guerrero Age: 88 yrs Sex: Female : 1930 Arrival Date: 06/22/2018 Time: 15:10 Bed 4 Private MD: ED Physician Shaji Hutchison HPI: 06/22 17:00 This 88 yrs old Female presents to ER via EMS with complaints of Shortness Of pm1 Breath, Altered Mental Status. 17:00 The patient has shortness of breath at rest. Onset: The symptoms/episode began/occurred pm1 today. Duration: The symptoms are continuous. The patient's shortness of breath has no apparent modifying factors. Associated signs and symptoms: Pertinent negatives: chest pain, non-productive cough, productive cough. Severity of symptoms: in the emergency department the symptoms. History obtained from family members, Daughters, at bedside. Patient was at baseline last night, family green party at the patient's house for Thanksgiving. Daughter reports the patient has had some diarrhea and one episode of vomiting last night. Today when the daughters went to visit the patient to go over and eat lunch, she was short of breath and her O2 saturations were in the 70s to 80s range. Patient was not using her home O2 at that time. Historical: - Allergies: 15:14 No Known Allergies; aj - Home Meds: 15:14 aspirin 81 mg Oral TbEC 2 tabs once daily for Acute Coronary Syndrome [Active]; Coreg aj 3.125 mg Oral Tb24 0.5 tab daily for Chronic Heart Failure [Active]; Klor-Con 10 meq daily [Active]; Lasix Oral 1 tab once daily for Peripheral Edema due to Chronic Heart Failure [Active]; Lipitor 10 mg Oral Tb24 1 tab nightly for Hypercholesterolemia [Active]; Vitamin D Oral [Active]; magnesium oxide 400 mg Oral Tb24 nightly for Hypomagnesemia [Active]; - PMHx: 15:14 CHF; Hyperlipidemia; Hypertension; aj - PSHx: 15:14 BACK-2015; CABG; Aortic Valve-2016; aj - Immunization history:: Adult Immunizations up to date. - Social history:: Smoking status: Patient/guardian denies using tobacco. - Ebola Screening: : Patient negative for fever greater than or equal to 101.5 degrees Fahrenheit, and additional compatible Ebola Virus Disease symptoms Patient denies exposure to infectious person Patient denies travel to an Ebola-affected area in the 21 days before illness onset No symptoms or risks identified at this time. ROS: 17:00 Constitutional: Negative for fever, chills, and weight loss, Eyes: Negative for injury, pm1 pain, redness, and discharge, ENT: Negative for injury, pain, and discharge, Neck: Negative for injury, pain, and swelling, Cardiovascular: Negative for chest pain, palpitations, and edema, Back: Negative for injury and pain. 17:00 : Negative for injury, bleeding, discharge, and swelling, MS/Extremity: Negative for injury and deformity, Skin: Negative for injury, rash, and discoloration. 17:00 Respiratory: Positive for shortness of breath, at rest. 17:00 Abdomen/GI: Positive for vomiting, diarrhea, Negative for abdominal pain. 17:00 Neuro: Positive for altered mental status, Negative for numbness, syncope, near syncope, weakness. Exam: 17:00 Constitutional: This is a well developed, well nourished patient who is awake, alert, pm1 and in no acute distress. Head/Face: Normocephalic, atraumatic. Eyes: Pupils equal round and reactive to light, extra-ocular motions intact. Lids and lashes normal. Conjunctiva and sclera are non-icteric and not injected. Cornea within normal limits. Periorbital areas with no swelling, redness, or edema. ENT: Nares patent. No nasal discharge, no septal abnormalities noted. Tympanic membranes are normal and external auditory canals are clear. Oropharynx with no redness, swelling, or masses, exudates, or evidence of obstruction, uvula midline. Mucous membranes moist. Neck: Trachea midline, no thyromegaly or masses palpated, and no cervical lymphadenopathy. Supple, full range of motion without nuchal rigidity, or vertebral point tenderness. No Meningismus. Chest/axilla: Normal chest wall appearance and motion. Nontender with no deformity. No lesions are appreciated. Cardiovascular: Regular rate and rhythm with a normal S1 and S2. No gallops, murmurs, or rubs. Normal PMI, no JVD. No pulse deficits. 17:00 Abdomen/GI: Soft, non-tender, with normal bowel sounds. No distension or tympany. No guarding or rebound. No evidence of tenderness throughout. Back: No spinal tenderness. No costovertebral tenderness. Full range of motion. Skin: Warm, dry with normal turgor. Normal color with no rashes, no lesions, and no evidence of cellulitis. MS/ Extremity: Pulses equal, no cyanosis. Neurovascular intact. Full, normal range of motion. 17:00 Respiratory: the patient does not display signs of respiratory distress, Respirations: tachypnea, Breath sounds: are clear throughout. 17:00 Neuro: Orientation: to person, Not oriented to place, time, situation, Motor: moves all fours. Vital Signs: 15:14 BP 106 / 54; Pulse 94; Resp 28; Temp 102.3(O); Pulse Ox 97% on 4 lpm NC; Weight 81.65 aj kg; Height 5 ft. 2 in. (157.48 cm); 17:30 BP 110 / 45; Pulse 81; Resp 23; Pulse Ox 92% on 2 lpm NC; aj 18:28 BP 116 / 57; Pulse 83; Resp 22; Temp 100.2(O); Pulse Ox 93% on 2 lpm NC; aj 19:00 Resp 33; Pulse Ox 83% on 4 lpm NC; bb 20:03 BP 104 / 64; Pulse 84; Resp 27 A; Pulse Ox 100% on 60% BiPAP; bb 20:48 BP 104 / 50; Pulse 79; Resp 28 A; Pulse Ox 100% on 60% BiPAP; bb 21:34 BP 97 / 56; Pulse 77; Resp 25 A; Temp 103(A); Pulse Ox 99% on 60% BiPAP; bb 22:14 BP 85 / 50; Pulse 73; Resp 26; Pulse Ox 100% on 60% BiPAP; bb 22:32 BP 106 / 69; Pulse 96; Resp 26; Temp 101.7; Pulse Ox 99% on 60% BiPAP; bb 22:45 BP 103 / 55; Pulse 88; Resp 22 S; Pulse Ox 99% on 60% BiPAP; bb 23:00 BP 100 / 52; Pulse 87; Resp 21; Pulse Ox 100% on 60% BiPAP; bb 23:20 BP 96 / 59; Pulse 98; Resp 21; Pulse Ox 100% on 60% BiPAP; bb 15:14 Body Mass Index 32.92 (81.65 kg, 157.48 cm) aj MDM: 15:12 Patient medically screened. pm1 17:21 Data reviewed: vital signs. Data interpreted: Pulse oximetry: on 2L(s) per nasal pm1 canula, is 97 %. Interpretation: normal. 17:21 Counseling: I had a detailed discussion with the patient and/or guardian regarding: the pm1 historical points, exam findings, and any diagnostic results supporting the discharge/admit diagnosis, lab results, radiology results, the need for further work-up and treatment in the hospital. 17:37 Physician consultation: Isabel Fontanez MD was called at 17:38, was contacted at 17:38, pm1 regarding admission, patient's condition, would like further tests performed, CT scan, abd/pelvis without IV contrast, Will see if we have ICU beds available and will call us back if we can admit her here. 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 Discussed with Dr. eduardo Hutchison, no anticoagulation besides aspirin due to valve replacement. 19:20 ED course: Patient with decreased oxygen saturation and increased confusion. Patient pm1 previously AAO x 3. Lasix and BiPAP ordered. 19:35 Physician consultation: Pinky Jane MD was called at 19:35, was contacted at 19:35, pm1 regarding admission, patient's condition, and will see patient in ED. 21:40 ED course: Dr. Berumen present in room to assess patient. Patient with continued pm1 tachypnea and decreased oxygen saturation with placement of Bipap. Plan: Will observe patient in the ER prior to transfer to the ICU. If no improvement in 1 hour with lasix and Bipap, we will intubate the patient. 22:10 ED course: Patient with decreased systolic blood pressure. Discussed with Dr. Berumen. pm1 Recommends dopamine peripheral until PICC line placement . 06/22 15:13 Order name: Urine Culture pm1 06/22 15:13 Order name: Basic Metabolic Panel; Complete Time: 16:47 pm1 06/22 15:13 Order name: Blood Culture Adult (2) pm1 06/22 15:13 Order name: CBC with Diff; Complete Time: 16:47 pm1 06/22 15:13 Order name: Ckmb; Complete Time: 16:47 pm1 06/22 15:13 Order name: CPK; Complete Time: 16:47 pm1 06/22 15:13 Order name: Lactate; Complete Time: 16:47 pm1 06/22 15:13 Order name: LFT's; Complete Time: 16:47 pm1 06/22 15:13 Order name: Lipase; Complete Time: 16:47 pm1 06/22 15:13 Order name: Procalcitonin; Complete Time: 17:04 pm1 06/22 15:13 Order name: Protime (+inr); Complete Time: 16:47 pm1 06/22 15:13 Order name: Ptt, Activated; Complete Time: 16:47 pm1 06/22 15:13 Order name: Troponin (emerg Dept Use Only); Complete Time: 16:47 pm1 06/22 15:13 Order name: Urine Microscopic Only; Complete Time: 17:33 pm1 06/22 15:13 Order name: Chest Single View XRAY; Complete Time: 18:27 pm1 06/22 15:13 Order name: ABG; Complete Time: 16:06 pm1 06/22 15:15 Order name: CT Head Brain wo Cont; Complete Time: 16:47 pm1 06/22 16:32 Order name: Manual Differential; Complete Time: 16:47 EDHI 06/22 16:32 Order name: Urine Dipstick--Ancillary (enter results); Complete Time: 16:50 eb 06/22 17:20 Order name: Flu [facility] 06/22 17:37 Order name: CT Abd/Pelvis - Without Cont; Complete Time: 18:27 pm1 06/22 19:16 Order name: BIPAP [facility] 06/22 21:03 Order name: Lactate Sepsis 2 HR Follow-up; Complete Time: 21:12 EDHI 06/22 22:57 Order name: Blood Culture [facility] 06/22 23:38 Order name: ABG Arterial Blood Gas; Complete Time: 23:51 EDHI 06/22 15:13 Order name: Accucheck; Complete Time: 15:46 pm1 06/22 15:13 Order name: Cardiac monitoring; Complete Time: 15:44 pm1 06/22 15:13 Order name: EKG - Nurse/Tech; Complete Time: 15:43 pm1 06/22 15:13 Order name: IV Saline Lock - Large Bore; Complete Time: 15:43 pm1 06/22 15:13 Order name: Labs collected and sent; Complete Time: 15:43 pm1 06/22 15:13 Order name: O2 Per Protocol; Complete Time: 15:43 pm1 06/22 15:13 Order name: O2 Sat Monitoring; Complete Time: 15:43 pm1 06/22 15:13 Order name: Urine Dipstick-Ancillary (obtain specimen); Complete Time: 15:43 pm1 Administered Medications: 09:33 Drug: Lasix 40 mg Route: IVP; Site: left wrist; bb 22:14 Follow up: Response: No adverse reaction bb 15:33 Drug: NS 0.9% 500 ml Route: IV; Rate: bolus; Site: right antecubital; aj 18:36 Follow up: Response: No adverse reaction; IV Status: Completed infusion; IV Intake: aj 500ml 15:34 Drug: Zofran 4 mg Route: IVP; Site: right antecubital; aj 18:35 Follow up: Response: No adverse reaction aj 15:34 Drug: Tylenol Suppository 650 mg Route: GA; aj 18:35 Follow up: Response: Temperature is decreased aj 18:34 Drug: NS 0.9% 500 ml Route: IV; Rate: bolus; Site: right forearm; aj 19:26 Follow up: IV Status: Completed infusion; IV Intake: 500ml bb 18:34 Drug: Aspirin 325 mg Route: PO; aj 22:14 Follow up: Response: No adverse reaction bb 18:35 Drug: Cefepime 2 grams Route: IVPB; Rate: 200 ml/hr; Infused Over: 30 mins; Site: right aj forearm; 19:15 Follow up: IV Status: Completed infusion; IV Intake: 200ml bb 19:26 Drug: Ativan 0.5 mg Route: IVP; Site: left wrist; bb 22:14 Follow up: Response: No adverse reaction bb 19:45 Drug: vancoMYCIN 1 grams Route: IVPB; Infused Over: 2 hrs; Site: right forearm; bb 22:45 Follow up: IV Status: Completed infusion; IV Intake: 250ml lp1 21:34 Drug: Tylenol Suppository 650 mg Route: GA; bb 23:08 Follow up: Response: Temperature is decreased lp1 22:13 Drug: Dopamine drip 2 mcg/kg/min - (DOPamine 400 mg, D5W 250 ml) Route: IV; Rate: bb calculated rate; Site: right forearm; 23:07 Follow up: IV Status: Infusion continued upon admission lp1 23:09 CANCELLED (Physician Discretion): NS 0.9% 500 ml IV at 100 ml/hr once lp1 Disposition: 06/22/18 17:24 Hospitalization ordered by Isabel Fontanez for Inpatient Admission. Preliminary diagnosis are Uroseptic, Altered mental status, unspecified, Shortness of breath. - Bed requested for Intensive Care Unit. - Status is Inpatient Admission. bb - Condition is Stable. - Problem is new. - Symptoms have improved. UTI on Admission? Yes Addendum: 06/25/2018 08:15 Co-signature as Attending Physician, Shaji Hutchison MD I agree with the assessment and c escalante plan of care. Signatures: Dispatcher [employer] EDHI Lexy Monsalve RN RN mw Myers, Amanda, RN RN aj Anderson, Corey, MD MD cha Ballard, Brenda, RN RN bb So Lorenz RN RN lp1 Jason Laguerre, SEWER CONNECTOR SEWER CONNECTOR pm1 Corrections: (The following items were deleted from the chart) 06/22 16:32 16:12 CBC Smear Scan ordered. [facility] EDHI 20:43 17:24 Hospitalization Ordered by Isabel Fontanez MD for Inpatient Admission. Preliminary diagnosis is Uroseptic; Altered mental status, unspecified; Shortness of breath. Bed requested for Telemetry/MedSurg (Inpatient). Status is Inpatient Admission. Condition is Stable. Problem is new. Symptoms have improved. UTI on Admission? Yes. pm1 21:01 20:43 06/22/2018 17:24 Hospitalization Ordered by Isabel Fontanez MD for Inpatient pm1 Admission. Preliminary diagnosis is Uroseptic; Altered mental status, unspecified; Shortness of breath. Bed requested for Telemetry/MedSurg (Inpatient). Status is Inpatient Admission. Condition is Stable. Problem is new. Symptoms have improved. UTI on Admission? Yes. 21:09 21:01 06/22/2018 17:24 Hospitalization Ordered by Isabel Fontanez MD for Inpatient mw Admission. Preliminary diagnosis is Uroseptic; Altered mental status, unspecified; Shortness of breath. Bed requested for Intensive Care Unit. Status is Inpatient Admission. Condition is Stable. Problem is new. Symptoms have improved. UTI on Admission? Yes. pm1 23:09 17:15 NS 0.9% 500 ml IV at 100 ml/hr once ordered. pm1 lp1 23: 23:09 NS 0.9% 500 ml IV at 100 ml/hr once ordered. lp1 lp1 23:48 21:09 06/22/2018 17:24 Hospitalization Ordered by Isabel Fontanez MD for Inpatient bb Admission. Preliminary diagnosis is Uroseptic; Altered mental status, unspecified; Shortness of breath. Bed requested for Intensive Care Unit. Status is Inpatient Admission. Condition is Stable. Problem is new. Symptoms have improved. UTI on Admission? Yes. mw
[2018-06-22 17:29] LABS: Urine Bacteria 20-50 /HPF (<20); Urine Culture Reflex Order NOT NEEDED; Urine RBC <5 /HPF (NONE SEEN)
[2018-06-22 17:30] LABS: Urine Amorphous Sediment 4+ /HPF (NONE SEEN)
[2018-06-22] MEDS ORDERED: NA CHLORIDE 0.9% 100 ML IV ONE (18:05)
[2018-06-22] MEDS ORDERED: CEFEPIME 2 GM VIAL ONE (18:05)
[2018-06-22] MEDS ORDERED: VANCOMYCIN 1 GM/250 ML BAG ONE (18:05)
--- NOTE | 2018-06-22 18:05 | RAD REPORT ---
EXAM DESCRIPTION: RAD - Chest Single View - 06/22/2018 4:14 pm CLINICAL HISTORY: Transient alteration of awareness, cough and congestion COMPARISON: December 2017 TECHNIQUE: AP portable chest image was obtained 1554 hours . FINDINGS: Lung volumes are low compared to prior study. Retrocardiac left base assessment is limited . Pleural and parenchymal opacification are not substantially different from the comparison. Central vasculature and lung markings are prominent. Sternotomy wires are in place. Mild cardiomegaly is pres ent. Trachea is midline. No pneumothorax or large right pleural effusion. No acute bony abnormality s een. No acute aortic findings suspected. IMPRESSION: Mild CHF/ volume overload pattern. Left base pleural and parenchymal opacification are similar to comparison.
[2018-06-22] MEDS ORDERED: ASPIRIN 81 MG CHEWABLE TABLET ONE (18:09)
[2018-06-22] MEDS ORDERED: NA CHLORIDE 0.9% 1,000 ML ONE (18:09)
--- NOTE | 2018-06-22 18:15 | RAD REPORT ---
EXAM DESCRIPTION: CT - Abdomen Pelvis Wo Contrast - 06/22/2018 6:04 pm CLINICAL HISTORY: Abdominal pain, altered mental status COMPARISON: None. TECHNIQUE: Axial [address] imaging of the abdomen and pelvis was performed without IV contrast. No IV contrast was given because of allergy, abnormal renal function, patient refusal or physician re quest. No oral contrast administered. All CT scans are performed using dose optimization technique as appropriate and may include automated exposure control or mA/KV adjustment according to patient size. FINDINGS: Small posterior left gutter pleural effusion is present probably loculated. There are lula ral small masslike densities that are probably chronic atelectasis. Lung bases are only partially sheryl ged. No acute findings in the right lung base. No pericardial thickening or effusion. The liver, spleen and pancreas show no suspicious findings on non-contrast imaging. Cholecystectomy c lips are present. No biliary tree dilatation. No hydronephrosis or suspicious renal mass. No significant adrenal finding. Isodense renal masses an d pyelonephritis cannot be excluded in the absence of IV contrast. Urinary bladder is fully contracte d around a [place] catheter. No uterine abnormality. Ovaries are atrophic. No ovarian abnormality suspe cted. No dilated bowel loops or bowel wall thickening. No free air, free fluid or inflammatory stranding. N o hernia, mass or bulky lymphadenopathy. Prominent bony degenerative change present. No acute bone process seen. Patient has compression fract ures of T11-L1 as well as previously treated compression fracture L3. Pathologic bone process not see n. Age of the untreated compression fractures is unknown. IMPRESSION: No bowel obstruction, free air or surgically emergent finding. No acute abdominal or pel claudette finding seen. Small loculated pleural effusion posterior gutter on the left. Abutting masslike parenchymal opacific ation probably chronic atelectasis. This study does not fully image the lung parenchyma. Full assessment is limited is the absence of IV contrast. Multiple thoracolumbar junction vertebral compression fractures age unknown. Patient has a previously treated L3 compression fracture.
[2018-06-22] MEDS ORDERED: FUROSEMIDE 40 MG/4 ML VIAL ONE (19:30)
[2018-06-22] MEDS ORDERED: LORazepam 2 MG/ML VIAL ONE (19:30)
[2018-06-22] MEDS ORDERED: ACETAMINOPHEN 650MG/RECT SUPP PR ONE (21:23)
[2018-06-22] MEDS ORDERED: DOPAMINE/D5W 400 MG/250 ML BAG IV ONE (22:16)
[2018-06-22] MEDS ORDERED: ACETAMINOPHEN 500 MG TAB PO PRN (22:43)
[2018-06-22] MEDS ORDERED: NA CHLORIDE 0.9% 1,000 ML IV SCH (23:00)
[2018-06-22] MEDS: IPRATROPIUM BROM 0.5MG/2.5ML NEB SCH (23:15)
[2018-06-22] MEDS: ALBUTEROL 2.5 MG/3 ML NEB SOL NEB SCH (23:15)
[2018-06-22 23:37] LABS: Arterial Blood Carboxyhemoglob 0.7 % (0-1.5); Blood Gas Oxyhemoglobin 97.5 % (94-97); Blood O2 Saturation 99.2 % (92-98.5)
[2018-06-22] MEDS: NA CHLORIDE 0.9% 1,000 ML IV SCH (23:54)
[2018-06-23] MEDS ORDERED: NA CHLORIDE 0.9% 500 ML ONE (01:31)
[2018-06-23] MEDS: IPRATROPIUM BROM 0.5MG/2.5ML NEB SCH ×4 (01:45→19:34)
[2018-06-23] MEDS: ALBUTEROL 2.5 MG/3 ML NEB SOL NEB SCH ×4 (01:45→19:34)
[2018-06-23] MEDS ORDERED: NOREPINEPHRINE 4mg/D5W 250mL 4 MG/250 ML BAG IV ONE (02:29)
[2018-06-23] MEDS: NOREPINEPHRINE 4 MG in D5W 250 ML IV PRN ×2 (02:36→21:32)
[2018-06-23] MEDS ORDERED: ENOXAPARIN 80 MG/0.8 ML SQ ONE (05:20)
[2018-06-23 06:06] LABS: Absolute Lymphocytes (CBC) 0.2 K/uL (0.7-4.9); Absolute Monocytes 0.5 K/uL (0.1-1.3); Absolute Neutrophil 17.3 K/uL (1.8-8.0); Basophils % 0.1 % (0-1.3); Hematocrit 26.9 % (36.0-45.0); Lymphocytes % 1.4 % (15.3-44.8); MCH 33.9 pg (27.0-35.0); MCV 100.4 fL (80-100); MPV 9.2 fL (7.6-11.3); Monocytes % 2.9 % (3.3-12.3); RBC Red Blood Cell Count 2.68 M/uL (3.86-4.86)
[2018-06-23 06:36] LABS: Albumin 2.4 g/dL (3.4-5.0); Bilirubin Total 0.5 mg/dL (0.2-1.0); Magnesium 1.8 mg/dL (1.8-2.4); Phosphorus 4.7 mg/dL (2.5-4.9); Potassium 3.7 mmol/L (3.5-5.1); Protein, Total 8.1 g/dL (6.4-8.2); Thyroid Stimulating Hormone 1.11 uIU/mL (0.360-3.740)
[2018-06-23 07:01] LABS: Protime INR 1.44
[2018-06-23] MEDS ORDERED: NA CHLORIDE 0.9% 500 ML IV ONE (07:26)
--- NOTE | 2018-06-23 08:33 | RAD REPORT ---
EXAM DESCRIPTION: RAD - Chest Single View - 06/23/2018 1:11 am CLINICAL HISTORY: PICC line placement COMPARISON: June 23 FINDINGS: Portable chest was obtained following placement of a right upper extremity PICC line. The catheter tip is in the mid SVC. Remainder of the chest is stable.
[2018-06-23] MEDS ORDERED: ENOXAPARIN 30 MG/0.3 ML SQ SCH (09:00)
[2018-06-23] MEDS ORDERED: AZITHROMYCIN IV 250 MG in NA CHLORIDE 0.9% 250 ML IVPB SCH (09:00)
[2018-06-23] MEDS ORDERED: CEFTRIAXONE/SWI 1gm 1 GM/10 ML SYR IV SCH (09:00)
[2018-06-23] MEDS ORDERED: CEFTRIAXONE 1 GM/NS 50 ML 1 GM/50 ML BAG IV SCH (09:00)
[2018-06-23] MEDS ORDERED: ALBUMIN HUMAN 25% 100 ML IV ONE (09:06)
--- NOTE | 2018-06-23 09:31 | P.HP ---
Certification for Inpatient Patient admitted to: Inpatient With expected LOS: >2 Midnights Practitioner: I am a practitioner with admitting privileges, knowledge of patient current condition, hospital course, and medical plan of care. Services: Services provided to patient in accordance with Admission requirements found in Title 42 Section 412.3 of the Code of Federal Regulations Patient History Date of Service: 06/22/18 Reason for admission: Septic shock History of Present Illness: Patient is an 88-year-old female who was in her normal state of health the yesterday. She had spent Thanksgiving dinner with her family. She was doing okay. However, yesterday evening she did develop some diarrhea after Thanksgiving dinner. The family came to visit with her today and her mentation was altered. She had also vomited on her gown and she was hypoxic with O2 saturations of 70-80%. They brought her into the emergency room. She remained hypoxic and they put her on BiPAP. She became hypotensive as well. Initially she was started on dopamine. We went ahead and switch this over to Levophed through the evening. She was also given boluses but with her history of cardiac disease we washed her fluid status closely. A PICC line was placed and her CVP was 5 so we have continued to give her boluses to wean her off the Levophed. Her UA revealed elevated bacteria but less than 5 white blood cells in her urine. Her CT scan does reveal a questionable loculated pleural effusion. We will do a dedicated CT scan of the chest to further evaluate. My concern is she has aspirated. Will continue to work her up treat her for aspiration pneumonia. Allergies No Known Allergies Allergy (Verified 01/19/18 16:12) Home Medications: Atorvastatin Calcium [Lipitor*] 10 mg PO DAILY 03/04/16 Furosemide [Lasix*] 20 mg PO DAILY 03/04/16 Magnesium Oxide [Mag 0X*] 250 mg PO DAILY 03/04/16 Potassium Chloride [Klor-Con 10] 10 meq PO DAILY 03/04/16 Aspirin 325 mg PO DAILY 06/22/18 Carvedilol [Coreg] 3.125 mg PO DAILY 06/22/18 - Past Medical/Surgical History Has patient received pneumonia vaccine in the past: Yes Diabetic: No -: HTN -: CHF -: Coronary artery disease, CABG x2 bipass -: Aortic valve replacement, nonmechanical -: Chronic renal disease -: Hyperlipidemia -: Multiple myeloma "cancer of the blood" diag 3 yrs ago. no treatment done -: Back surgery -: Non mechanical aortic valve replacement -: CABG x2 vessels -: Right knee replacement Psychosocial/ Personal History: The patient is a . She lives by herself. She is independent. She has children - Family History Sister Medical History: Cancer - Social History Smoking Status: Smoker current status UNK Place of Residence: Home Review of Systems 10-point ROS is otherwise unremarkable Physical Examination - Vital Signs Temperature: 101 F Blood Pressure: 80/50 Pulse: 110 Respirations: 26 Pulse Ox (%): 80 - Physical Exam General: Other (Follows commands and she is on BiPAP) HEENT: Atraumatic, Normocephalic, PERRLA, Mucous membr. moist/pink Neck: Supple, 2+ carotid pulse no bruit, JVD not distended, No Thyromegaly, No LAD Respiratory: Crackles/rales, Expiratory wheezes Cardiovascular: Regular rate/rhythm, Normal S1 S2, Systolic murmur Gastrointestinal: Normal bowel sounds, Hypoactive, Soft and benign, Non- distended, No tenderness Musculoskeletal: No clubbing, No swelling Integumentary: No rashes Neurological: Normal tone, Sensation intact, Cranial nerves 3-12 intact, Abnormal gait, Abnormal speech, Abnormal strength Lymphatics: No axilla or inguinal lymphadenopathy - Studies Laboratory Data (last 24 hrs) 06/22/18 15:43: PT 16.6 H, INR 1.40, APTT 27.5 06/22/18 15:43: WBC 18.7 H, Hgb 10.3 L, Hct 30.9 L, Plt Count 170 06/22/18 15:43: Sodium 140, Potassium 3.8, BUN 38 H, Creatinine 2.20 H, Glucose 135 H, Total Bilirubin 0.4, AST 47 H, ALT 18, Alkaline Phosphatase 55, Lipase 50 L Assessment & Plan - Problems (Diagnosis) (1) Aspiration pneumonia Current Visit: Yes Status: Acute (2) Non-STEMI (non-ST elevated myocardial infarction) Current Visit: Yes Status: Acute (3) Pleural effusion Current Visit: Yes Status: Acute (4) CHF (congestive heart failure) Current Visit: No Status: Acute Qualifiers: Heart failure type: systolic Heart failure chronicity: acute on chronic Qualified Code(s): I50.23 - Acute on chronic systolic (congestive) heart failure (5) Chronic renal disease Current Visit: No Status: Acute Qualifiers: Chronic kidney disease stage: stage 3 (moderate) Qualified Code(s): N18.3 - Chronic kidney disease, stage 3 (moderate) (6) Hypoxia Current Visit: No Status: Acute (7) CAD (coronary artery disease) Current Visit: No Status: Chronic (8) History of aortic valve replacement Current Visit: No Status: Chronic (9) Hyperlipidemia Current Visit: No Status: Chronic (10) Hypertension Current Visit: No Status: Chronic Qualifiers: Hypertension type: essential hypertension Qualified Code(s): I10 - Essential (primary) hypertension (11) Multiple myeloma Current Visit: No Status: Chronic Qualifiers: Multiple myeloma remission status: unspecified Qualified Code(s): C90.00 - Multiple myeloma not having achieved remission (12) Septic shock Current Visit: Yes Status: Acute (13) DIC (disseminated intravascular coagulation) Current Visit: Yes Status: Acute - Plan 1. Continue with IV antibiotics 2. Awaiting sputum and blood culture 3. Repeat chest x-ray 4. Will proceed with CT scan of the chest 5. Pulmonary consultation 6. Continue with nebs as needed 7. O2 per protocol 8. Continue with hydration; monitor CVP 9. Repeat labs including CBC and monitor renal function 10. GI and DVT prophylaxis Discharge Plan: Other Plan to discharge in: Greater than 2 days - Advance Directives Does patient have a Living Will: No Does patient have a Durable POA for Healthcare: No - Code Status/Comfort Care Code Status Assessed: Yes Code Status: Full Code Critical Care: Yes Time Spent Managing PTS Care (In Minutes): 70
--- NOTE | 2018-06-23 09:43 | P.INFCA ---
Sepsis Focused Assessment - Sepsis Screen Result Septic Shock: Positive - Evaluation Current stage of sepsis: Septic shock - Vital Signs Reviewed: Yes Temperature: 99 F Heart rate: 85 Blood Pressure: 100/70 Respiratory Rate: 26 O2 Sat by Pulse Oximetry: 96 - Examination Date exam was performed: 06/23/18 Time exam was performed: 02:00 Heart: Regular rate/rhythm Lungs: Diminished air movement, Rhonchi Peripheral pulses: 2+ Slightly diminished Peripheral pulse location: Radial Capillary refill: <2 Seconds Skin examination: Normal turgor - Date of Service Date of Service: 06/23/18 - Subjective Subjective: No new changes - Vital Signs Temp Pulse Resp BP Pulse Ox 101 F H 110 H 26 H 80/50 L 80 L 06/23/18 09:38 06/23/18 09:38 06/23/18 09:38 06/23/18 09:38 06/23/18 09:38 - Physical Exam HEENT: Head atraumatic, normocephalic Lungs: Other Heart: Other Abdomen: Soft - Studies Laboratory Data (last 24 hrs) 06/22/18 15:43: PT 16.6 H, INR 1.40, APTT 27.5 06/22/18 15:43: WBC 18.7 H, Hgb 10.3 L, Hct 30.9 L, Plt Count 170 06/22/18 15:43: Sodium 140, Potassium 3.8, BUN 38 H, Creatinine 2.20 H, Glucose 135 H, Total Bilirubin 0.4, AST 47 H, ALT 18, Alkaline Phosphatase 55, Lipase 50 L - Problems (Diagnosis) (1) Aspiration pneumonia Current Visit: Yes Status: Acute (2) Non-STEMI (non-ST elevated myocardial infarction) Current Visit: Yes Status: Acute (3) Pleural effusion Current Visit: Yes Status: Acute (4) CHF (congestive heart failure) Current Visit: No Status: Acute Qualifiers: Heart failure type: systolic Heart failure chronicity: acute on chronic Qualified Code(s): I50.23 - Acute on chronic systolic (congestive) heart failure (5) Chronic renal disease Current Visit: No Status: Acute Qualifiers: Chronic kidney disease stage: stage 3 (moderate) Qualified Code(s): N18.3 - Chronic kidney disease, stage 3 (moderate) (6) Hypoxia Current Visit: No Status: Acute (7) CAD (coronary artery disease) Current Visit: No Status: Chronic (8) History of aortic valve replacement Current Visit: No Status: Chronic Comment: Non mechanical (9) Hyperlipidemia Current Visit: No Status: Chronic (10) Hypertension Current Visit: No Status: Chronic Qualifiers: Hypertension type: essential hypertension Qualified Code(s): I10 - Essential (primary) hypertension (11) Multiple myeloma Current Visit: No Status: Chronic Qualifiers: Multiple myeloma remission status: unspecified Qualified Code(s): C90.00 - Multiple myeloma not having achieved remission (12) Septic shock Current Visit: Yes Status: Acute (13) DIC (disseminated intravascular coagulation) Current Visit: Yes Status: Acute - Assessment and Plan Continue with current plan of care 1. Continue with IV antibiotics 2. Awaiting sputum and blood culture 3. Repeat chest x-ray 4. Will proceed with CT scan of the chest 5. Pulmonary consultation 6. Continue with nebs as needed 7. O2 per protocol 8. Continue with hydration; monitor CVP 9. Repeat labs including CBC and monitor renal function 10. GI and DVT prophylaxis - Discharge Plan Discharge Plan: Other Plan to discharge in: Greater than 2 days - Code Status/Comfort Care Code Status: Full Code - Physician Review Critical Care: Yes Time Spent Managing Pts Care (In Minutes): 35
[2018-06-23] MEDS: Levofloxacin500mg IV 500 MG/100 ML BAG IV SCH (09:45)
[2018-06-23] MEDS: NA CHLORIDE 0.9% 1,000 ML IV SCH ×2 (09:46→20:34)
--- NOTE | 2018-06-23 10:28 | CON ---
Reason For Consult: Abnormal troponins. History Of Present Illness: Mrs. Guerrero is 88. The history is not reliable directly from the carmencita ent, but apparently she was acting more confused, was brought to the emergency room and it is believe d she has a urinary tract infection, although urine culture reveals a low number of organisms, and th ere is no organism identified, but there is hematuria and bacteria, amorphous sediment, it maybe just a dirty specimen, but she does have a catheter in place, so I assume that was a catheterized specime n. Presently, she is receiving antibiotics and seems to be getting better. She required norepinephr ine for a while. She is on azithromycin and ceftriaxone. She has a PICC line. The chest x-ray woul d not suggest there is pulmonary edema or pneumonia. CT of the head reveals atrophy of the brain, ch ronic ischemic changes. She has had a CT of the abdomen and pelvis. There is a loculated pleural ef fusion on the left. There are lot of compression fractures in thoracolumbar spine. No real cause of sepsis is seen. Her laboratory exam shows an elevated white blood cell count with left shift, macro cytosis. Her blood gas indicates normal pH. A D-dimer is very elevated. The patient has a history of coronary bypass surgery, history of baseline confusion. She denies any pain. Physical Examination: She is confused. She does not know what city she is in. She seems to know she is in the hospital, d oes not know what year, what hospital her surgery was done at or when. Outpatient Medications: Furosemide, magnesium, atorvastatin, potassium chloride, Coreg, and aspirin. Allergies: SHE HAS NO KNOWN ALLERGIES. Social History: Uses no tobacco or illegal drugs. She is normally a patient of Dr. Noonan. Laboratory Report: Her initial troponin was 1.64. The second one was 2.7. Her electrocardiogram does not reveal anything that would be suggestive of acute myocardial infarctio n. Impression: The patient has elevated troponin. She has also got some significant renal insufficienc y, baseline dementia, probably our best course of therapy is going to be treated any coronary heart d isease medically. If we come to the point where we think a cardiac cath is needed, I will contact Dr Gale Noonan's, if he wants to take her in transfer since he is her usual tax specialist, so this could be an acute coronary syndrome, it looks more like. There is sepsis. She does have a bioprosthetic aor tic valve, so an echocardiogram will be done at some point. Serial blood cultures would not indicate at least at this point that if there is infective infection of the valve. Thank you very much for your kind referral of Mrs. Guerrero. I will follow her with you. TIFFANY Voice ID: [id number] Report ID: [id number]
[2018-06-23] MEDS ORDERED: AMIODARONE HCL 150 MG in D5W 100 ML IV STA (10:54)
[2018-06-23] MEDS ORDERED: AMIODARONE HCL 450 MG in D5W 241 ML IV SCH (11:00)
[2018-06-23] MEDS: AMIODARONE HCL 450 MG in D5W 241 ML IV SCH ×2 (11:13→21:32)
[2018-06-23] MEDS: PIPER/TAZO/NS 3.375gm 3.375 GM/100 ML BAG IVPB SCH ×2 (11:15→17:50)
--- NOTE | 2018-06-23 12:38 | RAD REPORT ---
EXAM DESCRIPTION: CT - Thorax Wo Con - 06/23/2018 12:15 pm CLINICAL HISTORY: Shortness of breath COMPARISON: Portable chest June 23; CT chest February 2016 ; CT study June 22, 2018 TECHNIQUE: Axial 5 mm thick images of the chest were obtained without IV contrast. All CT scans are performed using dose optimization technique as appropriate and may include automated exposure control or mA/KV adjustment according to patient size. FINDINGS: Small loculated left pleural effusion is present in the posterior gutter. Pleural fluid is seen in the thickened Azeem diminished in volume compared to 2016. The areas of masslike consolidation that abut the pleural effusion are similar to 2016. Malignant mass would not maintain stable size ov er a 2 year interval. This would indicate scarring or chronic atelectasis etiology. Minimal pleural fluid present on the right. Both lung carlisle show prominent interstitial markings in the patient has cardiomegaly without pericardial thickening or effusion. Pulmonary arteries are enlar ged. This is similar to comparison. Dense cardiac valve and Coronary artery calcifications are presen t. There are dense aortic calcifications. No abnormal mediastinal or hilar masses or lymphadenopathy seen. No chest wall mass or abnormal axillary lymphadenopathy. IMPRESSION: Small left posterior gutter loculated pleural effusion smaller in size than 2016. Masslike densities abutting the left base pleural effusion are not substantially different from 2016 indicating scarring or chronic atelectasis etiology. Cardiomegaly and interstitial thickening suspicious for failure/volume overload.
--- NOTE | 2018-06-23 22:09 | P.PN ---
Subjective Date of Service: 06/24/18 Chief Complaint: Septic shock Subjective: No new changes, No C/O voiced, Improving Patient seen and examined at bedside. No family at bedside. Case discussed with nursing staff. Review of Systems As noted Physical Examination - Vital Signs Temperature: 99.4 F Blood Pressure: 108/57 Pulse: 101 Respirations: 19 Pulse Ox (%): 98 - Physical Exam General: Alert, Oriented x3, Moderate distress HEENT: Atraumatic, PERRLA, EOMI Neck: Supple, JVD not distended Respiratory: Dull, Expiratory wheezes Cardiovascular: Regular rate/rhythm, Normal S1 S2 Gastrointestinal: Hypoactive, Non-distended, No tenderness Musculoskeletal: No tenderness Integumentary: No rashes Neurological: Normal speech, Abnormal strength, Abnormal tone Lymphatics: No axilla or inguinal lymphadenopathy - Studies Microbiology Data (last 24 hrs): 06/22/18 11:27 Nasopharnyx Influenza Type A Antigen Screen - Final 06/22/18 11:27 Nasopharnyx Influenza Type B Antigen Screen - Final Assessment And Plan - Plan This is an 80-year-old female with: Septic shock. Improving DIC Source: Possible aortic valve, urine, respiratory Continue Levophed. Will continue to wean as tolerated. Continue IV antibiotics Pending sputum and blood cultures Monitor CVP Non STEMI Elevated troponins in the context of chronic renal disease as well as coronary artery disease, no specific EKG changes. Cardiology consulted, recommendations appreciated. No surgical intervention planned at this time. Continue with medical management. Pleural effusion. Acute on chronic systolic CHF Hypoxia Improved, continue oxygen as needed Coronary artery disease Cardiology consulted, no and surgical intervention planned at this time. Continue medical management. History of aortic valve replacement This could possibly be a source for patient's sepsis. She will likely need echo in the next few days for further evaluation. Essential hypertension. Hypotensive secondary to septic shock. Hold hypertension medications for now. Chronic renal disease Creatinine stable. continue to monitor Hyperlipidemia History of multiple myeloma, not having achieved remission DVT prophylaxis: GI prophylaxis: Protonix Diet: Regular Disposition: Continue to wean off Levophed as tolerated. Continue to monitor in ICU. Guarded prognosis Physician Review: Patient Assessed, Agree with Above Assessment and Plan Time Spent Managing PTS Care (In Minutes): 55
[2018-06-24] MEDS: PIPER/TAZO/NS 3.375gm 3.375 GM/100 ML BAG IVPB SCH ×3 (01:38→17:19)
[2018-06-24] MEDS: ALBUTEROL 2.5 MG/3 ML NEB SOL NEB SCH ×4 (02:13→19:42)
[2018-06-24] MEDS: IPRATROPIUM BROM 0.5MG/2.5ML NEB SCH ×4 (02:13→19:42)
[2018-06-24] MEDS: ONDANSETRON 4 MG/2 ML VIAL IV PRN ×2 (06:00→20:00)
--- NOTE | 2018-06-24 06:12 | EKG ---
Test Date: 2018-06-22 Test Time: 17:01:26 Harvest Worker Field Crop: LUIGI MEASUREMENT RESULTS: Intervals: Rate: 77 [place]: 160 QRSD: 86 QT: 366 QTc: 414 [place]: P: 114 [place]: 160 QRS: -7 T: -47 INTERPRETIVE STATEMENTS: Normal sinus rhythm with sinus arrhythmia ST & T wave abnormality, consider anterolateral ischemia Abnormal ECG Compared to ECG 06/22/2018 16:28:10 ST (T wave) deviation still present Electronically Signed On 06-24-18 06:11:35 SNUFF CONTAINER INSPECTOR by Christo Dickinson
--- NOTE | 2018-06-24 06:12 | EKG ---
Test Date: 2018-06-22 Test Time: 16:28:10 Merchandising Consultant: LUIGI MEASUREMENT RESULTS: Intervals: Rate: 84 [place]: QRSD: 86 QT: 338 QTc: 399 [place]: P: MA: QRS: -13 T: -29 INTERPRETIVE STATEMENTS: Sinus rhythm ST & T wave abnormality, consider anterolateral ischemia Abnormal ECG Compared to ECG 01/19/2018 13:48:25 ST (T wave) deviation now present Electronically Signed On 06-24-18 06:12:12 NUT TAPPER by Christo Dickinson
[2018-06-24] MEDS ORDERED: VANCOMYCIN/NS 1 gm 1 GM/250 ML BAG IVPB ONE (08:00)
[2018-06-24] MEDS: AMIODARONE HCL 450 MG in D5W 241 ML IV SCH ×2 (09:00→09:29)
[2018-06-24 09:01] LABS: Absolute Lymphocytes (CBC) 0.3 K/uL (0.7-4.9); Absolute Monocytes 0.6 K/uL (0.1-1.3); Absolute Neutrophil 13.2 K/uL (1.8-8.0); Basophils % 0.1 % (0-1.3); Eosinophils % 0.4 % (0-4.4); Hematocrit 26.9 % (36.0-45.0); Lymphocytes % 2.2 % (15.3-44.8); MCV 100.2 fL (80-100); MPV 9.1 fL (7.6-11.3); Monocytes % 4.4 % (3.3-12.3); RBC Red Blood Cell Count 2.69 M/uL (3.86-4.86)
[2018-06-24] MEDS: ENOXAPARIN 80 MG/0.8 ML SQ SCH (09:29)
[2018-06-24] MEDS: Levofloxacin500mg IV 500 MG/100 ML BAG IV SCH (09:29)
[2018-06-24] MEDS: NA CHLORIDE 0.9% 1,000 ML IV SCH ×3 (09:30→21:35)
[2018-06-24 09:34] LABS: Albumin 2.1 g/dL (3.4-5.0); Bilirubin Total 0.8 mg/dL (0.2-1.0); Phosphorus 3.3 mg/dL (2.5-4.9); Potassium 3.5 mmol/L (3.5-5.1); Protein, Total 7.5 g/dL (6.4-8.2)
--- NOTE | 2018-06-24 09:46 | EKG ---
Test Date: 2018-06-23 Test Time: 10:33:59 Cementer Hand: RUI MEASUREMENT RESULTS: Intervals: Rate: 102 [place]: QRSD: 84 QT: 346 QTc: 450 [place]: P: AR: QRS: -2 T: -74 INTERPRETIVE STATEMENTS: Atrial fibrillation with rapid ventricular response ST & T wave abnormality, consider inferolateral ischemia or digitalis effect Abnormal ECG Compared to ECG 06/22/2018 17:01:26 Sinus rhythm no longer present Sinus arrhythmia no longer present ST (T wave) deviation still present Electronically Signed On 06-24-18 09:45:45 BAKER HEAD by Christo Dickinson
--- NOTE | 2018-06-24 10:52 | PN ---
Mrs. Guerrero went into atrial fibrillation. We have her on amiodarone through a PICC line. She see ms to be doing well. She has very little hunger, but overall seems to be improving a little. Her cr eatinine is better. Hemoglobin holding steady at 9.2. She is definitely not a candidate for a coron [place]inita intervention of any kind that we can try to control the atrial fibrillation using amiodarone. AUNG/TISHA Voice ID: [id number] Report ID: [id number]
[2018-06-24] MEDS ORDERED: KCL 20 MEQ/100 mL IVPB 20 MEQ/100 ML BAG IV SCH (14:00)
--- NOTE | 2018-06-24 16:25 | P.PN ---
Subjective Date of Service: 06/24/18 Chief Complaint: Septic shock Patient seen and examined at bedside. No family at bedside. Case discussed with nursing staff. Reports feeling a little better, blood pressure is improved with Levophed, down to 1 mcg. Review of Systems As noted Physical Examination - Vital Signs Temperature: 99.4 F Blood Pressure: 108/57 Pulse: 101 Respirations: 19 Pulse Ox (%): 98 - Physical Exam General: Alert, Oriented x3, Mild distress HEENT: Atraumatic, PERRLA, EOMI Neck: Supple, JVD not distended Respiratory: Clear to auscultation bilaterally, Normal air movement Cardiovascular: Regular rate/rhythm, Normal S1 S2 Gastrointestinal: Normal bowel sounds, No tenderness Musculoskeletal: No tenderness Integumentary: No rashes Neurological: Normal speech, Normal tone, Normal affect - Studies Microbiology Data (last 24 hrs): 06/22/18 16:27 Catheterized Urine [place] Count - Final <10,000 CFU/ML. 06/22/18 16:27 Catheterized Urine - Final 06/22/18 11:27 Nasopharnyx Influenza Type A Antigen Screen - Final 06/22/18 11:27 Nasopharnyx Influenza Type B Antigen Screen - Final Assessment And Plan - Plan This is an 80-year-old female with: Septic shock. Improving DIC Source: Possible aortic valve, urine, respiratory Improving blood pressures with Levophed, Levophed down to 1 mcg.. Will continue to wean as tolerated. Continue IV antibiotics Pending sputum and blood cultures Monitor CVP Leukocytosis: Improving Non STEMI Elevated troponins in the context of chronic renal disease as well as coronary artery disease, no specific EKG changes. Cardiology consulted, recommendations appreciated. No surgical intervention planned at this time. Continue with medical management. Atrial fibrillation Patient with AFib, currently on amiodarone Cardiology consulted, appreciate recommendations Pleural effusion. Acute on chronic systolic CHF Hypoxia Improved, continue oxygen as needed Coronary artery disease Cardiology consulted, no surgical intervention planned at this time. Continue medical management. History of aortic valve replacement This could possibly be a source for patient's sepsis. Echo has been ordered, pending. Essential hypertension. Hypotensive secondary to septic shock. Hold hypertension medications for now. Chronic renal disease Creatinine stable. continue to monitor Anemia, likely of chronic disease H&H stable, no evidence of active bleeding at this time. Will continue to monitor H&H Hyperlipidemia History of multiple myeloma, not having achieved remission DVT prophylaxis: GI prophylaxis: Protonix Diet: Regular Disposition: Continue to wean off Levophed as tolerated. Continue to monitor in ICU. Guarded prognosis Physician Review: Patient Assessed, Agree with Above Assessment and Plan Time Spent Managing PTS Care (In Minutes): 55
[2018-06-25] MEDS: PIPER/TAZO/NS 3.375gm 3.375 GM/100 ML BAG IVPB SCH ×2 (02:00→09:00)
[2018-06-25] MEDS: ALBUTEROL 2.5 MG/3 ML NEB SOL NEB SCH ×4 (02:22→19:29)
[2018-06-25] MEDS: IPRATROPIUM BROM 0.5MG/2.5ML NEB SCH ×4 (02:22→19:29)
[2018-06-25] MEDS: AMIODARONE HCL 450 MG in D5W 241 ML IV SCH (02:30)
[2018-06-25 05:57] VITALS: BMI 35.3
[2018-06-25] MEDS: NA CHLORIDE 0.9% 1,000 ML IV SCH ×3 (07:20→17:40)
--- NOTE | 2018-06-25 07:40 | EKG ---
Test Date: 2018-06-23 Test Time: 16:23:39 Automotive Title Clerk: RUI MEASUREMENT RESULTS: Intervals: Rate: 106 [place]: QRSD: 86 QT: 352 QTc: 467 [place]: P: ND: QRS: -16 T: -62 INTERPRETIVE STATEMENTS: Sinus tachycardia Nonspecific ST and T wave abnormality Abnormal ECG Compared to ECG 06/23/2018 10:33:59 Atrial fibrillation no longer present Possible ischemia no longer present ST (T wave) deviation still present Electronically Signed On 06-25-18 07:39:36 CROP PRODUCTION ADVISOR by Christo Dickinson
[2018-06-25] MEDS: ENOXAPARIN 80 MG/0.8 ML SQ SCH (09:00)
[2018-06-25] MEDS: Levofloxacin500mg IV 500 MG/100 ML BAG IV SCH (09:01)
[2018-06-25] MEDS: ONDANSETRON 4 MG/2 ML VIAL IV PRN (09:54)
--- NOTE | 2018-06-25 13:16 | ECHO ---
HEIGHT: 5 ft 2 in WEIGHT: 193 lb 0 oz DATE OF STUDY: 06/25/[address]: Pinky Jane MD 2-DIMENSIONAL: YES M.MODE: YES DOPPLER: YES COLOR FLOW: YES TDS: PORTABLE: DEFINITY: BUBBLE STUDY: DIAGNOSIS: HYPOTENSION, ELEVATED TROPONIN, BACTEREMIA CARDIAC HISTORY: CATHERIZATION: YES SURGERY: YES PROSTHETIC VALVE: YES PACEMAKER: MEASUREMENTS (cm) DIASTOLIC (NORMALS) SYSTOLIC (NORMALS) IVSd 1.3 (0.6-1.2) LA Diam 4.7 (1.9-4.0) LVEF 57% LVIDd 4.7 (3.5-5.7) LVIDs 3.3 (2.0-3.5) %FS 30% LVPWd 1.3 (0.6-1.2) Ao Diam 2.6 (2.0-3.7) 2 DIMENSIONAL ASSESSMENT: RIGHT ATRIUM: NORMAL LEFT ATRIUM: DILATED RIGHT VENTRICLE: NORMAL LEFT VENTRICLE: LEFT VENTRICULAR HYPERTROPHY TRICUSPID VALVE: NORMAL MITRAL VALVE: MITRAL ANNULAR CALCIFICATION PULMONIC VALVE: NORMAL AORTIC VALVE: SCLEROSIS PERICARDIAL EFFUSION: NONE AORTIC ROOT: NORMAL LEFT VENTRICULAR WALL MOTION: NORMAL DOPPLER/COLOR FLOW: MILD AORTIC, MITRAL AND TRICUSPID REGURGITATION. IMPAIRED LEFT VENTRICULAR RELAXATION. ESTIMATED RIGHT VENTRICULAR SYSTOLIC PRESSURE 35 mmHg (MILD PULMONARY HYPERTENSION). COMMENTS: NORMAL LEFT VENTRICULAR EJECTION FRACTION. LEFT VENTRICULAR HYPERTROPHY. DILATED LEFT ATRIUM. MITRAL ANNULAR CALCIFICATION. AORTIC SCLEROSIS WITH NO AORTIC STENOSIS. MILD AORTIC, MITRAL AND TRICUSPID REGURGITATION. MILD PULMONARY HYPERTENSION. IMPAIRED LEFT VENTRICULAR RELAXATION. TECHNOLOGIST: JONI PUTNAM
[2018-06-25] MEDS: CEFAZOLIN/SWI 1gm 1 GM/10 ML SYR IV SCH (13:46)
--- NOTE | 2018-06-25 14:04 | RAD REPORT ---
EXAM DESCRIPTION: RAD - Chest Single View - 06/25/2018 1:45 pm CLINICAL HISTORY: CHF COMPARISON: June 23 TECHNIQUE: AP portable chest image was obtained 1257 hours . FINDINGS: Lung volumes are low. Interstitial markings are accentuated by the shallow inspiration. Th e interstitial thickening or edema pattern has not clearly changed. Pulmonary artery enlargement cory ins. Heart size is stable. Left costophrenic angle blunting and retrocardiac density still present. T rachea is midline. Right-side PICC line remains in place. No enlarging pleural effusion. No pneumotho rax seen. No acute bony abnormality seen. No acute aortic findings suspected. IMPRESSION: CHF/volume overload pattern is still evident and stable, accentuated on this exam by a m ore shallow inspiratory effort.
--- NOTE | 2018-06-25 16:09 | PN ---
An 88-year-old woman. Ms. Guerrero is maintaining sinus rhythm and now she is having quite a bit of dyspnea. We do not have a chest x-ray from today, but we will get one. She seems to have some pulmo nary crackles. I am going to increase the amount of Lasix she gets. We will stop amiodarone. I am thinking she will stay in normal rhythm without an antiarrhythmic drug. I think diuresis will help h er quite a bit and being off amiodarone. She may well be toxic although most toxic reactions from th e lungs in people taking amiodarone occur after several months of therapy at least. AUNG/TISHA Voice ID: [id number] Report ID: [id number]
[2018-06-25] MEDS ORDERED: FUROSEMIDE 40 MG/4 ML VIAL IV SCH (17:00)
--- NOTE | 2018-06-25 19:09 | P.PN ---
Subjective Date of Service: 06/25/18 Chief Complaint: Septic shock Patient seen and examined at bedside. No family at bedside. Case discussed with nursing staff. Reports feeling a little better, blood pressure is improved with Levophed, down to 1 mcg. Review of Systems As noted Physical Examination - Vital Signs Temperature: 98.8 F Blood Pressure: 99/48 Pulse: 71 Respirations: 26 Pulse Ox (%): 99 - Studies Microbiology Data (last 24 hrs): 06/22/18 16:18 Blood - Blood Aerobic Blood Culture - Final Staph Aureus 06/22/18 16:18 Blood - Blood Gram Stain - Final 06/22/18 16:18 Blood - Blood Anaerobic Blood Culture - Final Staph Aureus 06/22/18 16:18 Blood - Blood Gram Stain - Final Assessment And Plan - Plan This is an 80-year-old female with: Septic shock. Improving DIC Source: Possible aortic valve, urine, respiratory Improving blood pressures with Levophed, Levophed down to 1 mcg.. Will continue to wean as tolerated. Continue IV antibiotics. Switched to Ancef Pending sputum and blood cultures Monitor CVP Leukocytosis: Improving Non STEMI Elevated troponins in the context of chronic renal disease as well as coronary artery disease, no specific EKG changes. Cardiology consulted, recommendations appreciated. No surgical intervention planned at this time. Continue with medical management. Atrial fibrillation Patient with AFib, currently on amiodarone. Amiodarone drip. By cardiology, secondary to wheezing and respiratory distress. Cardiology consulted, appreciate recommendations Pleural effusion. Acute on chronic systolic CHF Hypoxia Improved, continue oxygen as needed Coronary artery disease Cardiology consulted, no surgical intervention planned at this time. Continue medical management. History of aortic valve replacement This could possibly be a source for patient's sepsis. Echo has been ordered, pending. Essential hypertension. Hypotensive secondary to septic shock. Hold hypertension medications for now. Chronic renal disease Creatinine stable. continue to monitor Anemia, likely of chronic disease H&H stable, no evidence of active bleeding at this time. Will continue to monitor H&H Hyperlipidemia History of multiple myeloma, not having achieved remission DVT prophylaxis: GI prophylaxis: Protonix Diet: Regular Disposition: Continue to monitor in ICU. Guarded prognosis Physician Review: Patient Assessed, Agree with Above Assessment and Plan
[2018-06-26] MEDS: IPRATROPIUM BROM 0.5MG/2.5ML NEB SCH ×4 (01:27→21:18)
[2018-06-26] MEDS: ALBUTEROL 2.5 MG/3 ML NEB SOL NEB SCH ×4 (01:27→21:18)
[2018-06-26] MEDS: CEFAZOLIN/SWI 1gm 1 GM/10 ML SYR IV SCH ×2 (05:00→18:29)
[2018-06-26] MEDS: NA CHLORIDE 0.9% 1,000 ML IV SCH (05:42)
[2018-06-26] MEDS ORDERED: CEFAZOLIN SODIUM 1 GM/VIAL ONE (06:01)
[2018-06-26] MEDS ORDERED: NA CHLORIDE 0.9% 100 ML IV ONE (06:01)
[2018-06-26 07:06] LABS: Absolute Lymphocytes (CBC) 0.5 K/uL (0.7-4.9); Absolute Monocytes 0.8 K/uL (0.1-1.3); Absolute Neutrophil 13.1 K/uL (1.8-8.0); Basophils % 0.2 % (0-1.3); Hematocrit 24.6 % (36.0-45.0); Lymphocytes % 3.3 % (15.3-44.8); MCH 35.2 pg (27.0-35.0); MCV 99.7 fL (80-100); MPV 9.9 fL (7.6-11.3); Monocytes % 5.9 % (3.3-12.3); RBC Red Blood Cell Count 2.46 M/uL (3.86-4.86)
[2018-06-26 07:34] LABS: Magnesium 1.9 mg/dL (1.8-2.4); Phosphorus 3.9 mg/dL (2.5-4.9); Potassium 3.5 mmol/L (3.5-5.1)
[2018-06-26] MEDS: ENOXAPARIN 80 MG/0.8 ML SQ SCH (09:26)
[2018-06-26 10:09] LABS: Blood Morphology Comment NOT SEEN (NOT SEEN); Platelet Estimate DECR; Toxic Granulation 2+; Urine White Blood Cell Casts OK
[2018-06-26 11:47] LABS: Uric Acid 5.7 mg/dL (2.6-6.0)
[2018-06-26] MEDS ORDERED: FUROSEMIDE 100 MG in NA CHLORIDE 0.9% 90 ML IV SCH (12:00)
[2018-06-26] MEDS ORDERED: KCL 20 MEQ/100 mL IVPB 20 MEQ/100 ML BAG IV SCH (12:00)
--- NOTE | 2018-06-26 12:11 | EKG ---
Test Date: 2018-06-25 Test Time: 23:51:45 Accounts Payable Assistant: BEKAH MEASUREMENT RESULTS: Intervals: Rate: 68 [place]: QRSD: 98 QT: 498 QTc: 529 [place]: P: OR: QRS: 20 T: -82 INTERPRETIVE STATEMENTS: Undetermined rhythm ST & T wave abnormality, consider inferior ischemia Prolonged QT Abnormal ECG Compared to ECG 06/23/2018 16:23:39 Possible ischemia now present Prolonged QT interval now present Sinus tachycardia no longer present ST (T wave) deviation still present Electronically Signed On 06-26-18 12:09:08 ELECTRICAL AND INSTRUMENT MECHANIC by Gino Narvaez
[2018-06-26] MEDS: FUROSEMIDE 100 MG in NA CHLORIDE 0.9% 90 ML IV SCH ×2 (12:15→22:10)
[2018-06-26 17:41] LABS: Arterial Blood Carboxyhemoglob 1.3 % (0-1.5); Blood Gas Oxyhemoglobin 90.5 % (94-97); Blood O2 Saturation 92.3 % (92-98.5)
--- NOTE | 2018-06-26 21:52 | CON ---
Subjective: This is an 88-year-old female. I was consulted for bacteremia and urosepsis secondary t o Staph not MRSA. The patient is unable to communicate. Family is by the bedside. Most of the hist ory was obtained through medical staff and family. Past Medical History: Includes congestive heart failure, coronary artery disease, aortic wall replac ement, chronic renal disease, hyperlipidemia, multiple myeloma, back surgeries, CABG x2 vessels, righ t knee replacement. Social History: Nonsmoker and nondrinker. Family History: Noncontributory. Medication: Ancef. See MARs for other medication. Allergies: NO KNOWN DRUG ALLERGIES. Review of Systems: Unable to obtain. Physical Examination: General: This is an 88-year-old female, lying in bed, in moderate respiratory distress. Vital Signs: Blood pressure 108/50, respirations 16, temperature 98, pulse 70. HEENT: Unremarkable. Neck: Supple. Lungs: Basal crackles. Heart: S1, S2. Regular. Abdomen: Soft, nontender. Bowel sounds present. Obese. Extremities: 2+ edema. Laboratory Data: Shows WBC 14.4 (leukocytosis), hemoglobin 8.7, platelets are 118. Chemistry shows sodium 138, potassium 3.5, chloride 110, bicarb 17, BUN 47, creatinine 2.8, glucose is 105. Microbiology Data: Blood cultures growing Staph aureus. Urine cultures are negative. Assessment And Plan: Bacteremia secondary to Staph aureus, possible most likely source is urine or s kin. Continue IV antibiotic total course of 2 weeks minimum to 4 weeks. Continue respiratory care. Continue monitoring kidney function. We will follow the patient closely. NF/MODL Voice ID: [id number] Report ID: [id number]
--- NOTE | 2018-06-26 21:52 | PN ---
Date of Progress Note: 06/26/2018 Code Status: Full. Subjective: The patient is seen and examined, chart reviewed, and case discussed with RN and Dr. Suzanne gonzales. The patient still quite ill-appearing. Now off Levophed. The patient having some nausea and phlegm production with cough. Review of Systems: Negative except as above. Medications: List reviewed. Physical Examination: Vital Signs: Temperature 98.9, heart rate 74, blood pressure 122/51, respirations 24, O2 100% on 3 L nasal cannula. General: Awake, alert, oriented x3. Mild distress, ill-appearing elderly female. CV: S1, S2. Regular rate and rhythm. Peripheral pulses present. Respiratory: Some diminished breath sounds. Diffuse rhonchi heard. Gastrointestinal: Abdomen is soft, nontender, nondistended. Positive bowel sounds. Extremities: No clubbing, cyanosis. Pedal edema is present. Neuro: Cranial nerves 2 through 12 intact grossly. No focal neurological deficit. Speech is normal . Skin: No rashes. Normal skin turgor. Psych: Mood is depressed. Affect is flat. Insight and judgment are fair. Laboratory Data: Blood culture show Staph aureus, 4/4, methicillin sensitive. Repeat blood cultures pending. Influenza screen is negative. Urine culture shows no growth. Sodium 138, potassium 3.5, chloride 110, CO2 17, BUN 47, creatinine 2.8, glucose 105, uric acid 5.7, calcium 7.6, magnesium 1.9. CK level 238, troponin 2.7, 4.04, 3.2. WBC 14.4, hemoglobin and hematocrit 8.7 and 24.6, platelets 118, neutrophils 90%. EKG shows a rate of 68, ST-T wave abnormality, possibly inferior ischemia, pr olonged QT. Assessment: 1.Septic shock, disseminated intravascular coagulation, unclear source, may be aortic valve. UA israel ewhat equivocal or possible respiratory source. The patient is improving overall now off Levophed an d blood pressure in the 90s. We will continue to monitor closely and continue antibiotics. Blood cu ltures are showing methicillin-sensitive Staphylococcus aureus. Antibiotics have been switched to An cef. 2.Xmo-VI-mkoiyxtop myocardial infarction. The patient has elevated troponin in the context of chron ic kidney disease, coronary artery disease. No ST elevation. Cardiology on board. No cardiac cath planned at this time. Continue with medical management. No chest pain at this time. 3.Atrial fibrillation, new onset. The patient is on amiodarone, likely related to respiratory distr ess. We will continue rate control. 4.Pleural effusion. 5.Acute on chronic systolic heart failure. 6.Hypoxia, improving. We will continue supplemental oxygen. Currently on 3 L via nasal cannula. 7.Coronary artery disease chilkat artery and chilkat heart without angina. Continue medical managemen t. 8.History of aortic valve replacement. Echocardiogram does not show any vegetation, however, to be completely sure may need transesophageal echocardiogram. We will discuss with Cardiology. 9.Essential hypertension. The patient currently hypotensive secondary to septic shock. Blood press ure medications on hold. 10.Acute on chronic kidney disease. Creatinine jumped up to 2.8 from previous. Likely stage III di sease. We will consult Nephrology. 11.Anemia of chronic disease. Continue to monitor hemoglobin and hematocrit, transfuse as needed. 12.Mixed hyperlipidemia, statin. 13.History of multiple myeloma, not in remission. 14.Gastrointestinal and deep venous thrombosis prophylaxis addressed. Plan: Continue to monitor in ICU setting. Length Of Stay: Greater than 2 midnights. /TISHA Voice ID: [id number] Report ID: [id number]
--- NOTE | 2018-06-26 23:49 | CON ---
Date of Consultation: 06/26/2018 Additional Consulting Physician: Dr. Garza. Reason For Consultation: Elevated BUN and creatinine, fluid management. History Of Present Illness: This is a pleasant 88-year-old female with significant past medical hist ory of hypertension, hyperlipidemia, coronary artery disease, and aortic valve replacement. The carmencita ent has osteoarthritis and apparently been taking Advil on a daily basis for the last couple of month s. The patient was brought to the hospital that after she has a gathering for the [employer], the family found the patient in her feces and urine with loss of consciousness and when she was brought t o the hospital, she was hypoxemic, saturation down to the 80. For that reason, she was admitted, fou nd to have hypovolemia as her CVP was low. The patient was started on Levophed, that was discontinue d on Monday. The patient's workup, suspect pneumonia/UTI. Workup shows that she has bacteremia, Sta ph aureus MSSA. The patient received a couple of doses of vancomycin. On presentation, the patient' s creatinine was 2.2 on the , gradually trending down to 1.8 on the , then today found to hav e elevated creatinine up to 2.8. For that reason, we have been consulted. GFR on presentation was 2 1, improved up to 27, and today down to 16. Reviewing the record for the patient back in January, her G FR around 30 with creatinine of 1.6. As I mentioned, the patient received a couple of doses of vanco mycin and she was on Levophed. Since yesterday, the patient was started on IV hydration. Her blood pressure stayed on the 90. The patient's cardiac enzyme been positive, 3.3. There is no exposure for any IV contrast. Past Medical History: Includes; 1.Hypertension. 2.Hyperlipidemia. 3.Coronary artery disease. 4.Aortic valve replacement. Social History: No smoking, no drinking, or no drugs abuse. Allergies: NO KNOWN DRUG ALLERGIES. Family History: Positive for hypertension. Home Medications: Include atorvastatin, Lasix, KCl, magnesium, and carvedilol. Review of Systems: Head and Neck: No red eye. No ear pain. GI: No nausea, no vomiting. : No polyuria, no dysuria, or no hematuria. Decreased urine output. LICENSED VOCATIONAL NURSE: No vaginal discharge. Respiratory: Has shortness of breath. Has leg swelling. Endocrine: No polydipsia. Skin: No rash. Neuro: The patient has slightly altered mental status and found full. Musculoskeletal: Low back pain. Skin: No rash. Physical Examination: Vital Signs: When I saw the patient, blood pressure down to 97/60, pulse of 88. Chest: Crackles bilateral with wheezing. Heart: S1, S2. Systolic murmur. Abdomen: Soft, nontender. Extremities: Plus edema. Laboratory Data: Sodium 138, potassium 3.5, bicarb 17, chloride 110, BUN 47, creatinine 2.8, GFR of 16, calcium 7.6, and magnesium 1.9. CK 238. Procalcitonin of 8. WBC 14.4, H and H 8.7/24.6, and pl atelets of 118. Urinalysis, +2 blood, bacteria of 50. Protein-creatinine is 1.7. ABG, pH 7.29, CO2 30, O2 72, and base excess -10. Vanc trough today 8.4. Current Medications: The patient on include Tylenol, atorvastatin, cefazolin, Zofran, and IV fluid. Assessment And Plan: 1.Acute kidney injury on chronic kidney disease stage 3 secondary to cardiorenal poor perfusion, ATN , and over volume. Given the anemia, given the bacteremia, toxic ATN is still a possibility and give n the thrombocytopenia, process of sepsis and toxic ATN also still possible. 2.I am going to go ahead and start the patient on Lasix drip, discontinue IV fluid. We will go ahea d and send for the workup for the embolic process. I am going to send for LFT and we will send for c omplement. We will send for urine eosinophil to rule out any AIN and we will send for vanc random to evaluate any toxic ATN secondary to vanc. We will monitor the patient. 3.Sepsis with bacteremia, possible endocarditis supportive with artificial valve. I agree with curr ent antibiotic. We will follow up with Cardiology to evaluate if the patient may need SAJI. 4.Acidosis. High anion gap metabolic acidosis secondary to renal failure. I do not see the need fo r bicarb. We will start the patient to monitor. 5.Anemia with acute kidney injury. Light chain disease needs to be ruled out. We will send for the workup. 6.Hypokalemia. We will continue supplement. 7.Hypertension, currently hypotension and shock. Hold all blood pressure medication, except we will place the patient on Lasix drip. 8.New onset of congestive heart failure with aortic valve replacement. We will follow up with [facility]. 9.Anasarca. We will send for TSH and we will follow up. Thank you, Dr. Garza, for allowing us to participate in the care of your patient. Case was discussed with Dr. Garza, discussed with the staff, agreed on the plan. KEISHA Voice ID: [id number] Report ID: [id number]
--- NOTE | 2018-06-26 23:52 | PN ---
Date of Progress Note: 06/26/2018 Ms. Guerrero is 88, had been admitted by Dr. Ahuja on 06/22/2018. Dr. Dickinson stopped her amiodarone yesterday and increased her Lasix. A chest x-ray was ordered because of shortness of breath. Chest x-ray was unremarkable. She is feeling better, diuresing. She remained in sinus rhythm despite bein g off the amiodarone. We will continue present regimen for now. NAYELI/TISHA Voice ID: [id number] Report ID: [id number]
[2018-06-27] MEDS: ALBUTEROL 2.5 MG/3 ML NEB SOL NEB SCH ×4 (01:22→19:47)
[2018-06-27] MEDS: IPRATROPIUM BROM 0.5MG/2.5ML NEB SCH ×4 (01:22→19:47)
[2018-06-27 05:17] LABS: Absolute Lymphocytes (CBC) 0.5 K/uL (0.7-4.9); Absolute Neutrophil 11.3 K/uL (1.8-8.0); Basophils % 0.2 % (0-1.3); Eosinophils % 0.1 % (0-4.4); Hematocrit 24.3 % (36.0-45.0); Lymphocytes % 4.2 % (15.3-44.8); MCH 33.8 pg (27.0-35.0); MCV 99.5 fL (80-100); MPV 9.9 fL (7.6-11.3); Monocytes % 7.9 % (3.3-12.3); RBC Red Blood Cell Count 2.44 M/uL (3.86-4.86)
[2018-06-27 05:58] LABS: Bilirubin Total 0.5 mg/dL (0.2-1.0); Folic Acid, (Folate) 7.9 ng/mL (3.1-17.5); Magnesium 2.2 mg/dL (1.8-2.4); Phosphorus 5.1 mg/dL (2.5-4.9); Potassium 3.5 mmol/L (3.5-5.1); Protein, Total 7.5 g/dL (6.4-8.2)
[2018-06-27] MEDS: CEFAZOLIN/SWI 1gm 1 GM/10 ML SYR IV SCH ×2 (06:19→17:08)
[2018-06-27] MEDS ORDERED: LEVOTHYROXINE SOD 0.025 MG TAB PO SCH (06:30)
[2018-06-27] MEDS: FUROSEMIDE 100 MG in NA CHLORIDE 0.9% 90 ML IV SCH ×2 (08:06→17:08)
--- NOTE | 2018-06-27 08:46 | RAD REPORT ---
EXAM DESCRIPTION: RAD - Chest Single View - 06/26/2018 9:41 pm CLINICAL HISTORY: Respiratory distress, tachypnea Final reporting was delayed due to technical malfunction. COMPARISON: June 25 TECHNIQUE: AP portable chest image was obtained 1723 hours . FINDINGS: Lung volumes are low. Mild cardiomegaly is present similar to comparison. Central vascular engorgement and prominent interstitial markings noted. Bilateral pleural effusions are present. No p neumothorax. No acute bony abnormality seen. No acute aortic findings suspected. IMPRESSION: CHF/volume overload pattern progressive from June 25.
[2018-06-27] MEDS: ASPIRIN 325 MG TAB PO SCH (08:50)
[2018-06-27] MEDS: ATORVASTATIN 10 MG TAB PO SCH (08:50)
[2018-06-27] MEDS: ENOXAPARIN 80 MG/0.8 ML SQ SCH (08:50)
--- NOTE | 2018-06-27 09:44 | RAD REPORT ---
EXAM DESCRIPTION: US - Renal Ultrasound-Complete - 06/26/2018 7:24 pm CLINICAL HISTORY: Renal insufficiency, abnormal renal function studies Final report was delayed due to technical malfunction COMPARISON: CT examination June 22 FINDINGS: The right kidney measures 9.3 x 4.2 x 5.1 cm. The left kidney measures 8.7 x 5.1 x 5.2 cm . Cortical thickness is normal. Bilateral cortical echogenicity is present typical for medical renal disease. No hydronephrosis or suspicious renal mass. No gross bladder abnormality seen. Bladder assessment was limited. IMPRESSION: Bilateral medical renal disease evident. No hydronephrosis or mass. No other significant findings.
[2018-06-27] MEDS ORDERED: KCL 20 MEQ/100 mL IVPB 20 MEQ/100 ML BAG IV SCH (11:00)
[2018-06-27 11:27] LABS: Rheumatoid Factor NEG (NEG)
--- NOTE | 2018-06-27 12:40 | PN ---
Ms. Guerrero is deteriorating and everything seems to point this being a continuous bacteremia with m ethicillin sensitive Staph aureus. We have to believe that the aortic valve, which is prosthetic, is the source of the infection. We do not see a vegetation. We cannot prove it is aortic stenosis. I t is not malfunctioning. She has not developed wide open aortic regurgitation. I think we should re jeremy this as endocarditis, commit her to 6-8 weeks of antibiotic therapy directed against the organis m. Dr. Galvez will help us with that. She probably needs to go to an LTAC and get this. With all o f her systems deteriorating, she may not survive that period of time. I feel certain she would not s urvive heart surgery to replace the valve, but committing to 6 weeks of antibiotic therapy is reasona ble to do. Overall, her prognosis is poor and she may not even survive the antibiotic course. AUNG/TISHA Voice ID: [id number] Report ID: [id number]
--- NOTE | 2018-06-27 14:50 | PN ---
Date of Progress Note: 06/27/2018 Brief History: The patient is seen and examined, chart reviewed, and case discussed with RN, Dr. Suzanne gonzales and Dr. Dickinson. The patient is still looking somewhat lethargic. States her breathing is some what better. Review of Systems: Negative except as above. Medications: List reviewed. Physical Examination: Vital Signs: Temperature 97.5, heart rate 72, blood pressure 100/57, respirations 24, O2 96% on 2 L via nasal cannula. General: Awake, alert, oriented x3, elderly female, ill appearing, in some mild respiratory distress obese. CV: S1, S2. Irregularly irregular. Peripheral pulses present. Respiratory: Diminished breath sounds. Some crackles heard. The patient is tachypneic. Use of acc essory muscles present. Gastrointestinal: Abdomen is soft, nontender, nondistended. Positive bowel sounds. Extremities: No clubbing, cyanosis. The patient does have right lower extremity edema, worse than l eft. Neurologic: Nonfocal. Skin: The patient does have some breakdown on her back, present on admission. Laboratory Data: Sodium 141, potassium 3.5, chloride 109, CO2 of 18, BUN 64, creatinine 3.6, glucose 102, calcium 7.7, phosphorus 5.1, magnesium 2.2. Ferritin 95.8, albumin 2, vitamin B12 714, serum f olate 7.9. WBC 12.9, H and H 8.3, 24.3, platelets 118, neutrophils 87%. ABG yesterday showed pH of 7.29, pCO2 of 30.5, pO2 of 72, bicarb 14.3. Blood cultures showing methicillin-sensitive Staphylococcus aureus. Chest x-ray personally reviewed, shows CHF volume overload pattern, progressive from June 25 8. Assessment And Plan: An 88-year-old female with: 1.Septic shock, possible disseminated intravascular coagulation, source of sepsis may be endocarditi s of the aortic valve versus urinary tract infection or respiratory source, now off Levophed, however , blood pressure is still on the low side. Antibiotics are being continued. Blood culture showing m ethicillin-sensitive Staphylococcus aureus. We will adjust IV antibiotics for possible endocarditis. ID has been consulted. 2.Kem-AZ-jmyvcdakj myocardial infarction. Elevated troponin in the context of chronic kidney diseas e, coronary artery disease. No ST-elevation on EKG. No cardiac cath. Plan at this time, continue m edical management. 3.Atrial fibrillation, new onset. Amiodarone is stopped secondary to respiratory distress and worse gissel lung function, currently rate controlled. 4.Pleural effusion. 5.Acute-on chronic systolic heart failure. We will continue Lasix drip. 6.Acute respiratory distress with hypoxia. We will continue supplemental oxygen. Currently on 3 L. Continue diuresis. 7.Acute-on chronic kidney disease stage 3. Creatinine jumped up to 3.6. Appreciate Nephrology inpu t. Does not need dialysis at this time. 8.History of aortic valve replacement. Transthoracic echocardiogram does not show any obvious veget ation, however, cannot be completely ruled out unless SAJI is done. I spoke with Dr. Dickinson, he agre es to treat her for endocarditis prophylactically. The patient unfortunately would not be a good can didate for surgical intervention. 9.Anemia of chronic disease. Vitamin B12, folate levels normal. We will continue to monitor H and H as needed. Ferritin is normal. 10.Mixed hyperlipidemia, on statin. 11.History of multiple myeloma, not in remission. 12.GI and DVT prophylaxis addressed. Plan: Overall poor prognosis. We will likely need to be placed her in LTAC for long-term IV antibio tics. We will need to redraw blood cultures to adjust antibiotics. The patient does have a PICC dyllan e which was in place during bacteremia, may need to be replaced. We will discuss further with Infectious Disease. We will continue to monitor in ICU setting. /TISHA Voice ID: [id number] Report ID: [id number]
[2018-06-27 16:11] VITALS: TEMP 97.9
[2018-06-27] MEDS: METRONIDAZOLE 500mg IVPB 500 MG/100 ML BAG IV SCH (17:08)
--- NOTE | 2018-06-27 19:08 | PN ---
Date of Progress Note: 06/27/2018 Subjective: The patient was admitted with septic shock/cardiogenic, undergo resuscitation being on L evophed, weaned Monday. The patient had experienced acute kidney injury and started been over volume . Yesterday, we started the patient on Lasix drip. The patient had good urine output. Blood pressu re maintained okay. Breathing better today. Objective: Vital Signs: Blood pressure 98/52, pulse of 72. The patient had urine output yesterday of 800, in the last 12 hours had 450, today since the morning the patient had almost 400 in the last 4 hours. Chest: Faint crackles bilateral. Heart: S1, S2. Regular. Abdomen: Soft. Nontender. Extremities: Trace edema. Neuro: More alert today. Laboratory Data: WBC 12.9, H and H 8.3/24.3, platelets 118. Sodium 141, potassium 3.5, bicarb 18, c hloride 109, BUN 64, creatinine 3.6, continues to decline with GFR down to 12, calcium 7.7, phosphoru s 5.1, ferritin 958. SPEP is still pending. Procalcitonin of 8.3. TSH 1.1. Cortisol level 47. Current Medication: The patient on its include: 1.Aspirin. 2.Cefazolin 1 g q.12. 3.Lovenox. 4.Atorvastatin. 5.Lasix drip of 10 mg. 6.Breathing treatment. 7.Levothyroxine. Assessment And Plan: 1.Acute kidney injury secondary to poor perfusion, acute tubular necrosis. Toxic acute tubular necr osis secondary to the vancomycin has been ruled out. Workup to evaluate for embolic. A primary work up was negative with normal liver function tests cleared off the hematuria. Complement is still pend ing. The patient is still on the over volume side. I am going to continue on the Lasix drip and we will monitor. Given the age and the multiple comorbid condition, I do not see the need to initiate r enal replacement therapy for the time being as there is no significant hyperkalemia or uremia. If ki dney function continues to decline, the patient may need renal replacement therapy. 2.Hypertension, currently blood pressure on the lower side. We will utilize blood pressure for diur esis to establish better volume control. Continue Lasix drip. 3.Bacteremia secondary to methicillin-susceptible Staphylococcus aureus with the presence of artific ial valve. We discussed the case with Dr. Dickinson, agreed to treat her as a presumption off infective endocarditis for 6 weeks. We will consider LTAC evaluation and we will follow up. 4.Acidosis secondary to renal failure, stable. No need for bicarb right now. 5.Atrial fibrillation, as by Cardiology. KEISHA Voice ID: [id number] Report ID: [id number]
[2018-06-28] MEDS: METRONIDAZOLE 500mg IVPB 500 MG/100 ML BAG IV SCH ×2 (00:23→08:20)
[2018-06-28] MEDS: IPRATROPIUM BROM 0.5MG/2.5ML NEB SCH ×2 (01:24→07:41)
[2018-06-28] MEDS: ALBUTEROL 2.5 MG/3 ML NEB SOL NEB SCH ×2 (01:24→07:41)
[2018-06-28] MEDS: FUROSEMIDE 100 MG in NA CHLORIDE 0.9% 90 ML IV SCH (02:55)
[2018-06-28] MEDS: CEFAZOLIN/SWI 1gm 1 GM/10 ML SYR IV SCH (05:27)
[2018-06-28 06:08] LABS: Absolute Lymphocytes (CBC) 0.9 K/uL (0.7-4.9); Absolute Monocytes 0.8 K/uL (0.1-1.3); Absolute Neutrophil 10.6 K/uL (1.8-8.0); Basophils % 0.3 % (0-1.3); Eosinophils % 0.2 % (0-4.4); Hematocrit 23.8 % (36.0-45.0); MCH 33.3 pg (27.0-35.0); MCV 99.9 fL (80-100); MPV 10.5 fL (7.6-11.3); Monocytes % 6.7 % (3.3-12.3); RBC Red Blood Cell Count 2.38 M/uL (3.86-4.86)
[2018-06-28 06:18] VITALS: BP 91/45
[2018-06-28 06:41] LABS: Albumin 1.9 g/dL (3.4-5.0); Bilirubin Total 0.5 mg/dL (0.2-1.0); Magnesium 2.3 mg/dL (1.8-2.4); Phosphorus 5.5 mg/dL (2.5-4.9); Potassium 3.4 mmol/L (3.5-5.1); Protein, Total 7.5 g/dL (6.4-8.2)
[2018-06-28] MEDS: ASPIRIN 325 MG TAB PO SCH (08:20)
[2018-06-28] MEDS: ENOXAPARIN 80 MG/0.8 ML SQ SCH (08:21)
[2018-06-28] MEDS: ATORVASTATIN 10 MG TAB PO SCH (08:21)
[2018-06-28 09:40] VITALS: O2SAT 96
--- NOTE | 2018-06-28 12:41 | P.PN ---
Subjective Date of Service: 06/28/18 Chief Complaint: Septic shock Subjective: No new changes no new complaints Pt seen and examined before discharge Cr trending up , pt will require HD discussed with daughter will arrange for HD tomorrow at [place] Physical Examination - Vital Signs Temperature: 97.9 F Blood Pressure: 91/45 Pulse: 73 Respirations: 22 Pulse Ox (%): 94 - Physical Exam General: Alert, Other (not oriented, ) Neck: Supple, Without JVD or thyroid abnormality Respiratory: Clear to auscultation bilaterally Cardiovascular: Edema Assessment And Plan - Current Problems (Diagnosis) (1) SASCHA (acute kidney injury) Current Visit: Yes Status: Acute (2) Non-STEMI (non-ST elevated myocardial infarction) Onset Date: 06/25/18 Current Visit: Yes Status: Acute (3) Septic shock Onset Date: 06/25/18 Current Visit: Yes Status: Acute - Plan The patient was admitted with septic shock/cardiogenic, undergo resuscitation being on Levophed, Found to have MSSA bacteremia , hx of prosthetic valve , not candidate for surgery at this time pt was hypervelomeic and started on lasix drip Assessment And Plan: 1.Acute kidney injury secondary to poor perfusion, Septic GN vs ATN from Vanco and hypoprefusion Hx of MM UPC 1.5 , UA +2 bld F/U serology 2.Bacteremia secondary to methicillin-susceptible Staphylococcus aureus with the presence of artificial valve. We discussed the case with Dr. Dickinson, agreed to treat her as a presumption off infective endocarditis for 6 weeks. We will consider LTAC evaluation and we will follow up. 3.Atrial fibrillation, as by Cardiology. Physician Review: Patient Assessed, Agree with Above Assessment and Plan
--- NOTE | 2018-06-29 10:49 | DS ---
Date of Discharge: 06/28/2018 Consultants: 1. Dr. Mckinney with Nephrology. 2. Dr. Narvaez and Dr. Dickinson with Cardiology. 3. Dr. Galvez with Infectious Disease. Admitting Diagnoses: 1. Sepsis. 2. Possible disseminated intravascular coagulation. 3. Zzt-YJ-glfifuixv myocardial infarction. 4. Aspiration pneumonia. 5. Pleural effusion. 6. Pfslz-ex-cdyvbbt systolic heart failure. 7. Chronic kidney disease, stage 3. 8. Hypoxia. 9. Coronary artery disease. 10. History of aortic valve replacement, nonmechanical. 11. Hyperlipidemia. 12. Hypertension. 13. Multiple myeloma. Discharge Diagnoses: 1. Septic shock, improved. 2. Ktj-BR-ijpdnfhuz myocardial infarction. 3. Atrial fibrillation, new onset. 4. Pleural effusion. 5. Ztnix-fs-pthzdmg systolic heart failure. 6. Acute respiratory distress with hypoxia. 7. Bsdrh-pe-molhnuf kidney disease, stage 3. 8. History of aortic valve replacement, nonmechanical. 9. Endocarditis of aortic valve. 10. Anemia of chronic disease. 11. Mixed hyperlipidemia, statin. 12. History of multiple myeloma, active. 13. Staph aureus bacteremia. 14. Obesity, BMI 36.9. Hospital Course: The patient is an 88-year-old female, who came into the hospital with septic shock. The patient was found to have O2 saturations 70-80% . She was placed on BiPAP. She was hypotensive, was started on pressors. Her white count was elevated at 18,000. Source of infection was possibly pneumonia or UTI. The patient was started on broad-spectrum IV antibiotics. She was admitted to the ICU. The patient's cultures grew out Staph aureus bacteremia in the blood cultures. Repeat blood cultures have been negative so far due to her mechanical aortic valve. It was felt to, also the patient may have endocarditis. Echocardiogram was done, which did not show any vegetation. However, since no SAJI is available and the patient does have positive blood cultures and sepsis. She was treated prophylactically for endocarditis with prosthetic valve, which is in order to save the valve. The patient would not survive surgery for another valve replacement. Infectious Disease was also consulted. The patient did have multiple electrolyte abnormalities, which were corrected. Her kidney function also deteriorated. She was to making urine. She was placed on Lasix drip. Workup was initiated by Nephrology. The patient was then referred to LTAC for long-term IV antibiotics for 6 weeks for endocarditis. The patient's atrial fibrillation will be treated with Eliquis. She will be on Ancef and Flagyl for the endocarditis. Followup: She will be followed up with Infectious Disease in 1-2 weeks. Follow up with professional athletes coach in 1-2 weeks, Dr. Mckinney. Follow up with clay artisan, Dr. Dickinson in 2 weeks. Return to ER for worsening condition. Diet: Renal. Activity: Fall precautions. She will also need PT and speech therapy while at the LTAC. Medications: As per medication reconciliation list. Prognosis: Overall, her prognosis remains poor. Physical Examination: General: Awake, alert, oriented x3. Mild distress. Ill-appearing elderly female. CV: S1 and S2. Irregularly irregular. Peripheral pulses present. Respiratory: Diminished breath sounds, otherwise no wheezing. Gastrointestinal: Abdomen is soft, nontender, nondistended. Positive bowel sounds. Extremities: No clubbing, cyanosis. Trace pedal edema. time spent dc pt was 39 minutes /TISHA Voice ID: [id number] Report ID: [id number] GLORIA
[2018-07-03 15:47] LABS: Albumin, (SPE) 2.5 g/dL (3.8-4.8); Alpha-1-Globulins 0.5 g/dL (0.2-0.3); Alpha-2-Globulins 0.8 g/dL (0.5-0.9); Gamma Globulins 2.4 g/dL (0.8-1.7); HBsAG Nonreactive (Nonreactive); Hepatitis C Virus RNA (PCR)log <1.18 log IU/mL; INTERPRETATION REPORT
== END 2018-06-28 11:50 | DRG 871 ==
LOC: ER 15:04 → ERHOLD 20:49 → 3RD-ICU 23:15
PROVIDERS: ADMIT Hospitalist; ATTEND Family Medicine
PROC: 5A09357 Assistance with Respiratory Ventilation, Less than 24 Consecutive Hours, Continuous Positive Airway Pressure (ICD-10-PCS; principal; 2018-06-22)
PROC: 02HV33Z Insertion of Infusion Device into Superior Vena Cava, Percutaneous Approach (ICD-10-PCS; 2018-06-23)
DX: A41.9 Sepsis, unspecified organism (principal); R65.21 Severe sepsis with septic shock; J69.0 Pneumonitis due to inhalation of food and vomit; I21.4 Non-ST elevation (NSTEMI) myocardial infarction; I50.23 Acute on chronic systolic (congestive) heart failure; D65 Disseminated intravascular coagulation [defibrination syndrome]; R57.0 Cardiogenic shock; N17.0 Acute kidney failure with tubular necrosis; I13.0 Hypertensive heart and chronic kidney disease with heart failure and stage 1 through stage 4 chronic kidney disease, or unspecified chronic kidney disease; C90.00 Multiple myeloma not having achieved remission; I10 Essential (primary) hypertension; I11.0 Hypertensive heart disease with heart failure; I25.10 Atherosclerotic heart disease of native coronary artery without angina pectoris; N18.3 Chronic kidney disease, stage 3 (moderate); R09.02 Hypoxemia; I48.91 Unspecified atrial fibrillation; E78.2 Mixed hyperlipidemia; E87.6 Hypokalemia; R06.03 Acute respiratory distress; I35.8 Other nonrheumatic aortic valve disorders; E66.9 Obesity, unspecified; Z68.36 Body mass index [BMI] 36.0-36.9, adult
CPT/HCPCS: 36415; 51702; 70450; 71045; 71250; 74176; 76770; 80048; 80053; 80061; 80076; 80202; 81003; 81015; 82533; 82550; 82553; 82570; 82607; 82728; 82746; 82805; 83520; 83605; 83690; 83735; 83880; 84100; 84145; 84156; 84165; 84439; 84443; 84484; 84550; 85025; 85379; 85384; 85610; 85730; 86038; 86160; 86225; 86317; 86430; 86704; 86706; 87040; 87077; 87086; 87088; 87186; 87205; 87340; 87522; 87804; 93005; 93306; 94640; 94660; 99285; J0282; J0456; J0690; J0692; J0696; J1265; J1650; J1940; J2405; J2543; J3370; J7030; J7060; P9047